=== PATIENT | male | born 1955 | race Caucasian/White ===

== ENCOUNTER → 2018-03-12 | Outpatient (CLI) | payer OTHER ==
[~2018-03-12] MED LIST: AMLO5 PO; AMOCLA875 PO; Ativan1 MG PO; CHLO10 PO; CHLO25 PO; CLON.1 PO; DILT180 PO; HYDACE5 PO; HYDACE5325 PO; HYDCHL12.5 PO; Hydrochlorothia25 MG PO; IBUP600 PO; LISI20 PO; LISI5 PO; LORA.5 PO; MAGOXI400 PO; METO25 PO; METO50 PO; METO50ER PO; Norco 5-325 Ta1 EACH PO; ONDA4ODT MM; POTPHO PO; ROXICODONE5 MG PO; RXHYD5325 PO; RXONDA4ODT MM; THERA TABLET400 MCG PO; THIA100 PO
[2018-03-12 15:30] LABS: Source, Urine Voided
[2018-03-12 19:19] LABS: Appearance, Urine Clear (Clear); Blood, Urine 4+ (Neg); Color, Urine Yellow (P-Yellow); Glucose Qualitative, Urine Neg (Neg); Ketones, Urine Neg (Neg); Leukocyte Esterase, Urine 3+ (Neg); Nitrite, Urine Neg (Neg); Protein, Urine 3+ (Neg); Urobilinogen, Urine NORM (Normal)
[2018-03-12 20:05] LABS: Bilirubin, Urine 1+ (Neg)
[2018-03-12 20:07] LABS: Bacteria Rare /hpf; Squamous Epithelial Cells Rare /hpf (Few)
== END ==
LOC: LAB SHORT 14:30 → LAB UCHC 14:30
PROVIDERS: Internal Medicine
DX: N18.3 Chronic kidney disease, stage 3 (moderate) (principal)
CPT/HCPCS: 81001

== ENCOUNTER 2018-07-05 04:41 | Observation (INO) | payer OTHER ==
[~2018-07-05] VITALS: Ht 175.3 cm; Wt 78.2 kg
[~2018-07-05 04:41] MED LIST changes: +DILTIAZEM PO; -LISI5 PO; +Zestril30 MG PO
[2018-07-05] MEDS ORDERED: DIURETIC (04:48)
[2018-07-05 05:17] LABS: BASOPHILS PERCENT AUTO 1 % (0-2); EOSINOPHILS ABSOLUTE AUTO 0.24 K/mm3 (0.00-0.68); EOSINOPHILS PERCENT AUTO 2 % (0-6); Hematocrit 47.5 % (37.0-53.0); Hemoglobin 16.1 g/dL (13.5-17.5); IMMATURE GRAN ABSOLUTE AUTO 0.32 K/mm3 (0.00-0.10); IMMATURE GRAN PERCENT AUTO 2 % (0-1); LYMPHOCYTES ABSOLUTE AUTO 2.55 K/mm3 (0.84-5.20); LYMPHOCYTES PERCENT AUTO 19 % (21-46); MONOCYTES ABSOLUTE AUTO 0.99 K/mm3 (0.16-1.47); MONOCYTES PERCENT AUTO 7 % (4-13); Mean Corpuscular HGB 32.5 pg (26.0-34.0); Mean Corpuscular HGB Conc 33.9 g/dL (31.5-36.5); Mean Corpuscular Volume 96 fL (80-100); Mean Platelet Volume 9.3 fL (9.1-12.4); NEUTROPHILS PERCENT AUTO 68 % (41-73); Platelet Count 369 K/mm3 (150-400); RDW Coefficient Variation 12.5 % (11.7-14.2); RDW Standard Deviation 43.8 fL (35.1-46.3); Red Blood Cell Count 4.96 M/mm3 (4.30-5.90)
[2018-07-05 05:31] LABS: Albumin, Blood 3.8 g/dL (3.4-5.0); Albumin/Globulin Ratio 0.7 (0.8-1.8); Bilirubin, Total 0.2 mg/dL (0.1-1.0); Bun/Creatinine Ratio 18.1 (12.0-20.0); Calcium, Blood 9.8 mg/dL (8.5-10.1); Creatinine, Blood 1.88 mg/dL (0.60-1.20); Globulin, Blood 5.7 g/dL (2.2-4.0); Potassium, Blood 4.3 mmol/L (3.5-5.5); Total Protein, Blood 9.5 g/dL (6.4-8.2)
[2018-07-05] MEDS ORDERED: SPIR25 PO (09:36)
[2018-07-05 13:54] LABS: Bilirubin, Urine Neg (Neg); Blood, Urine Neg (Neg); Glucose Qualitative, Urine 2+ (Neg); Ketones, Urine Neg (Neg); Leukocyte Esterase, Urine Neg (Neg); Nitrite, Urine Neg (Neg); Protein, Urine 3+ (Neg); Source, Urine Clean Catch; Urobilinogen, Urine NORM (Normal)
[2018-07-05 14:30] LABS: Specific Gravity, Urine 1.015 (1.003-1.022)
[2018-07-05 14:33] LABS: U Amphetamine Screen Not Detected; U Barbituate Screen Not Detected; U Benzodiazapine Screen Not Detected; U Buprenorphine Screen Not Detected; U Cannabinoids Screen Not Detected; U Cocaine Screen Not Detected; U Methadone Screen Not Detected; U Methamphetamine Screen Not Detected; U Opiates Screen Not Detected; U Oxycodone Screen Not Detected; U Phencyclidine Screen Not Detected; U Propoxyphene Screen Not Detected
[2018-07-05 14:46] LABS: Appearance, Urine Clear (Clear); Color, Urine Yellow (P-Yellow)
[2018-07-05 14:48] LABS: Bacteria Not Seen /hpf; Red Blood Cells, Urine Not Seen /hpf (0-2); Squamous Epithelial Cells Not Seen /hpf (Few); White Blood Cells, Urine Not Seen /hpf (0-5)
[2018-07-06 04:00] LABS: BASOPHILS ABSOLUTE AUTO 0.07 K/mm3 (0.00-0.23); BASOPHILS PERCENT AUTO 1 % (0-2); EOSINOPHILS ABSOLUTE AUTO 0.27 K/mm3 (0.00-0.68); EOSINOPHILS PERCENT AUTO 3 % (0-6); IMMATURE GRAN ABSOLUTE AUTO 0.06 K/mm3 (0.00-0.10); IMMATURE GRAN PERCENT AUTO 1 % (0-1); LYMPHOCYTES ABSOLUTE AUTO 2.45 K/mm3 (0.84-5.20); LYMPHOCYTES PERCENT AUTO 25 % (21-46); MONOCYTES ABSOLUTE AUTO 1.16 K/mm3 (0.16-1.47); MONOCYTES PERCENT AUTO 12 % (4-13); Mean Corpuscular HGB 32.9 pg (26.0-34.0); Mean Corpuscular HGB Conc 33.3 g/dL (31.5-36.5); NEUTROPHILS ABSOLUTE AUTO 5.86 K/mm3 (1.96-9.15); NEUTROPHILS PERCENT AUTO 59 % (41-73); Platelet Count 294 K/mm3 (150-400); RDW Coefficient Variation 12.9 % (11.7-14.2); RDW Standard Deviation 46.7 fL (35.1-46.3); Red Blood Cell Count 3.95 M/mm3 (4.30-5.90); White Blood Cell Count 9.87 K/mm3 (4.00-11.30)
[2018-07-06 04:02] LABS: Mean Corpuscular Volume 99 fL (80-100)
[2018-07-06 04:17] LABS: Bun/Creatinine Ratio 14.5 (12.0-20.0); Calcium, Blood 8.1 mg/dL (8.5-10.1); Creatinine, Blood 1.65 mg/dL (0.60-1.20); Magnesium, Blood 1.8 mg/dL (1.6-2.4); Potassium, Blood 4.5 mmol/L (3.5-5.5)
[2018-07-07] MEDS ORDERED: ASPI325EC PO (11:15)
[2018-07-07] MEDS ORDERED: CREON DR 12,001 EACH PO (11:16)
== END 2018-07-07 12:53 | disposition home or self-care (01) ==
LOC: ER 04:41 → PCU 04:42 → MEDS 08:53 → PCU 09:03 → MEDS 07-06 14:59
PROVIDERS: Emergency Medicine; Internal Medicine
DX: K85.20 Alcohol induced acute pancreatitis without necrosis or infection (principal); I16.0 Hypertensive urgency; I12.9 Hypertensive chronic kidney disease with stage 1 through stage 4 chronic kidney disease, or unspecified chronic kidney disease; N18.9 Chronic kidney disease, unspecified; N17.9 Acute kidney failure, unspecified; F17.210 Nicotine dependence, cigarettes, uncomplicated; D72.829 Elevated white blood cell count, unspecified; F19.10 Other psychoactive substance abuse, uncomplicated; F10.239 Alcohol dependence with withdrawal, unspecified; I63.233 Cerebral infarction due to unspecified occlusion or stenosis of bilateral carotid arteries; R11.2 Nausea with vomiting, unspecified; Z79.899 Other long term (current) drug therapy; Z79.01 Long term (current) use of anticoagulants; Y90.5 Blood alcohol level of 100-119 mg/100 ml
CPT/HCPCS: 36415; 70551; 80048; 80053; 81001; 83690; 83735; 85025; 93005; 93010; 93880; 96361; 96365; 96366; 96372; 96375; 96376; 99285-25; G0378; G0480; J0360; J1170; J1650; J2060; J2405; J3010; J3411; J3475; J7030; J7042

== ENCOUNTER 2018-11-25 17:53 | Emergency (ER) | payer OTHER ==
[~2018-11-25] VITALS: Ht 175.3 cm; Wt 77.1 kg
[~2018-11-25 17:53] MED LIST changes: +ASPI325EC PO; +CREON DR 12,001 EACH PO; +DIURETIC; +SPIR25 PO
[2018-11-25] MEDS ORDERED: DILT180 PO (18:07)
[2018-11-25] MEDS ORDERED: SODBIC650 PO (18:07)
[2018-11-25] MEDS ORDERED: LISI20 PO (18:07)
[2018-11-25 18:55] LABS: BASOPHILS ABSOLUTE AUTO 0.11 K/mm3 (0.00-0.23); BASOPHILS PERCENT AUTO 1 % (0-2); EOSINOPHILS ABSOLUTE AUTO 0.44 K/mm3 (0.00-0.68); EOSINOPHILS PERCENT AUTO 5 % (0-6); Hematocrit 37.3 % (37.0-53.0); Hemoglobin 12.2 g/dL (13.5-17.5); IMMATURE GRAN ABSOLUTE AUTO 0.32 K/mm3 (0.00-0.10); IMMATURE GRAN PERCENT AUTO 3 % (0-1); LYMPHOCYTES ABSOLUTE AUTO 3.07 K/mm3 (0.84-5.20); LYMPHOCYTES PERCENT AUTO 32 % (21-46); MONOCYTES ABSOLUTE AUTO 0.94 K/mm3 (0.16-1.47); MONOCYTES PERCENT AUTO 10 % (4-13); Mean Corpuscular HGB 32.9 pg (26.0-34.0); Mean Corpuscular HGB Conc 32.7 g/dL (31.5-36.5); Mean Corpuscular Volume 101 fL (80-100); Mean Platelet Volume 8.4 fL (9.1-12.4); NEUTROPHILS ABSOLUTE AUTO 4.67 K/mm3 (1.96-9.15); NEUTROPHILS PERCENT AUTO 49 % (41-73); Platelet Count 489 K/mm3 (150-400); RDW Standard Deviation 50.4 fL (35.1-46.3); Red Blood Cell Count 3.71 M/mm3 (4.30-5.90); White Blood Cell Count 9.55 K/mm3 (4.00-11.30)
[2018-11-25 19:15] LABS: Albumin, Blood 3.3 g/dL (3.4-5.0); Albumin/Globulin Ratio 0.7 (0.8-1.8); Bilirubin, Total 0.1 mg/dL (0.1-1.0); Bun/Creatinine Ratio 13.2 (12.0-20.0); Calcium, Blood 8.6 mg/dL (8.5-10.1); Creatinine, Blood 1.67 mg/dL (0.60-1.20); Potassium, Blood 4.6 mmol/L (3.5-5.5); Total Protein, Blood 8.3 g/dL (6.4-8.2)
== END 2018-11-25 20:47 | disposition home or self-care (01) ==
LOC: ER 17:53
PROVIDERS: Emergency Medicine
DX: M25.552 Pain in left hip (principal); R53.1 Weakness; F10.10 Alcohol abuse, uncomplicated; I12.9 Hypertensive chronic kidney disease with stage 1 through stage 4 chronic kidney disease, or unspecified chronic kidney disease; N18.9 Chronic kidney disease, unspecified; Z79.899 Other long term (current) drug therapy; Z79.82 Long term (current) use of aspirin; Z86.73 Personal history of transient ischemic attack (TIA), and cerebral infarction without residual deficits; Z87.891 Personal history of nicotine dependence; W18.30XA Fall on same level, unspecified, initial encounter
CPT/HCPCS: 36415; 72170; 80053; 85025; 93005; 93010; 99284-25

== ENCOUNTER 2019-08-19 19:12 | Emergency (ER) | payer OTHER ==
[~2019-08-19] VITALS: Ht 175.3 cm; Wt 81.7 kg
[~2019-08-19 19:12] MED LIST changes: +SODBIC650 PO
[2019-08-19 21:20] LABS: Calcium, Ionized (POC) 1.06 mmol/L (1.10-1.46); Chloride (POC) 106 mmol/L (98-108); Creatinine (POC) 2.2 mg/dL (0.8-1.3); Glucose (ISTAT POC) 162 mg/dL (70-99); Potassium (POC) 4.1 mmol/L (3.5-5.5); Sodium (POC) 140 mmol/L (135-148); Total CO2 (POC) 21 mmol/L (21-32)
[2019-08-19] MEDS ORDERED: CHLO25 PO (22:16)
[2019-08-19] MEDS ORDERED: ONDA4ODT MM (22:16)
== END 2019-08-19 22:20 ==
LOC: ER 19:12
PROVIDERS: Emergency Medicine
DX: S00.12XA Contusion of left eyelid and periocular area, initial encounter (principal); F10.239 Alcohol dependence with withdrawal, unspecified; K85.90 Acute pancreatitis without necrosis or infection, unspecified; I10 Essential (primary) hypertension; Z79.899 Other long term (current) drug therapy; Z79.82 Long term (current) use of aspirin; W50.0XXA Accidental hit or strike by another person, initial encounter
CPT/HCPCS: 70200; 80047; 83690; 85014; 96374; 99284-25; J2060

== ENCOUNTER 2019-09-24 00:35 | Inpatient (IN) | payer OTHER ==
[~2019-09-24] VITALS: Ht 177.8 cm; Wt 75.0 kg
[2019-09-24 01:31] LABS: BASOPHILS ABSOLUTE AUTO 0.09 K/mm3 (0.00-0.23); BASOPHILS PERCENT AUTO 1 % (0-2); EOSINOPHILS ABSOLUTE AUTO 0.06 K/mm3 (0.00-0.68); EOSINOPHILS PERCENT AUTO 0 % (0-6); Hematocrit 42.8 % (37.0-53.0); Hemoglobin 14.4 g/dL (13.5-17.5); IMMATURE GRAN ABSOLUTE AUTO 0.12 K/mm3 (0.00-0.10); IMMATURE GRAN PERCENT AUTO 1 % (0-1); LYMPHOCYTES ABSOLUTE AUTO 1.33 K/mm3 (0.84-5.20); LYMPHOCYTES PERCENT AUTO 9 % (21-46); MONOCYTES ABSOLUTE AUTO 1.13 K/mm3 (0.16-1.47); MONOCYTES PERCENT AUTO 8 % (4-13); Mean Corpuscular HGB Conc 33.6 g/dL (31.5-36.5); Mean Corpuscular Volume 101 fL (80-100); Mean Platelet Volume 9.3 fL (9.1-12.4); NEUTROPHILS ABSOLUTE AUTO 12.14 K/mm3 (1.96-9.15); NEUTROPHILS PERCENT AUTO 82 % (41-73); Platelet Count 403 K/mm3 (150-400); RDW Coefficient Variation 15.3 % (11.7-14.2); RDW Standard Deviation 57.1 fL (35.1-46.3); Red Blood Cell Count 4.24 M/mm3 (4.30-5.90); White Blood Cell Count 14.87 K/mm3 (4.00-11.30)
[2019-09-24 01:46] LABS: Alanine Aminotransfer (ALT/SGP 57 U/L (12-78); Albumin, Blood 4.7 g/dL (3.4-5.0); Alk Phos 106 U/L (50-136); Anion Gap 18 mmol/L (6-16); Aspartate Aminotrans (AST/SGOT 45 U/L (12-37); Bilirubin, Total 0.3 mg/dL (0.1-1.0); Blood Urea Nitrogen 35 mg/dL (8-24); Bun/Creatinine Ratio 16.1 (12.0-20.0); CO2, Blood 17 mmol/L (21-32); Calcium, Blood 10.2 mg/dL (8.5-10.1); Chloride, Blood 107 mmol/L (98-108); Creatinine, Blood 2.17 mg/dL (0.60-1.20); Ethanol (Alcohol), Blood, Med 26 mg/dL; Globulin, Blood 4.7 g/dL (2.2-4.0); Glomerular Filtration Rate 33 (60-); Glucose, Blood 74 mg/dL (70-99); Potassium, Blood 4.5 mmol/L (3.5-5.5); Sodium, Blood 142 mmol/L (136-145); Total Protein, Blood 9.4 g/dL (6.4-8.2); Troponin I <0.015 ng/mL (0.000-0.040)
[2019-09-24 03:14] LABS: Source, Urine Clean Catch
[2019-09-24 03:16] LABS: Appearance, Urine Clear (Clear); Bilirubin, Urine Neg (Neg); Blood, Urine 1+ (Neg); Color, Urine Yellow (P-Yellow); Glucose Qualitative, Urine Neg (Neg); Ketones, Urine 2+ (Neg); Leukocyte Esterase, Urine Neg (Neg); Nitrite, Urine Neg (Neg); Protein, Urine 2+ (Neg); Specific Gravity, Urine 1.015 (1.003-1.022); Urobilinogen, Urine NORM (Normal)
[2019-09-24 03:32] LABS: Bacteria Few /hpf; Red Blood Cells, Urine 0-2 /hpf (0-2); Squamous Epithelial Cells Not Seen /hpf (Few); White Blood Cells, Urine 0-2 /hpf (0-5)
[2019-09-24 05:38] LABS: Hematocrit 38.7 % (37.0-53.0); Hemoglobin 12.7 g/dL (13.5-17.5); Mean Corpuscular HGB 33.5 pg (26.0-34.0); Mean Corpuscular HGB Conc 32.8 g/dL (31.5-36.5); Mean Corpuscular Volume 102 fL (80-100); Mean Platelet Volume 9.3 fL (9.1-12.4); Platelet Count 358 K/mm3 (150-400); RDW Coefficient Variation 15.5 % (11.7-14.2); RDW Standard Deviation 59.1 fL (35.1-46.3); Red Blood Cell Count 3.79 M/mm3 (4.30-5.90); White Blood Cell Count 15.07 K/mm3 (4.00-11.30)
[2019-09-24 06:00] LABS: Albumin, Blood 3.9 g/dL (3.4-5.0); Bilirubin, Total 0.5 mg/dL (0.1-1.0); Bun/Creatinine Ratio 15.8 (12.0-20.0); Calcium, Blood 9.3 mg/dL (8.5-10.1); Creatinine, Blood 2.03 mg/dL (0.60-1.20); Globulin, Blood 4.1 g/dL (2.2-4.0); Potassium, Blood 4.5 mmol/L (3.5-5.5)
[2019-09-24 06:05] LABS: CHOL/HDL RATIO 2.5; Cholesterol 135 mg/dL (50-200); HDL Cholesterol 53 mg/dL (>39); LDL/HDL RATIO 1.2; Low Density Lipoprotein Chol 64 mg/dL (0-110); Triglycerides 92 mg/dL (30-160); Very Low Density Lipoprot Chol 18 mg/dL (6-32)
--- NOTE | 2019-09-24 18:14 | NUR ---
PT UP AND AMBULATING IN [place] TODAY, DIET ADVANCED TO CLEARS AND HE APPEARS TO BE TOLERATING WELL. MEDICATED FOR PAIN WITH IV FENTANYL X2 TODAY. NO S/S OF ETOH WITHDRAWL. NO ACUTE CHANGES NOTED THIS SHIFT. WILL CONTINUE TO MONITOR AND REPORT TO ONCOMING RN
[2019-09-25 05:34] LABS: BASOPHILS ABSOLUTE AUTO 0.06 K/mm3 (0.00-0.23); BASOPHILS PERCENT AUTO 1 % (0-2); EOSINOPHILS ABSOLUTE AUTO 0.27 K/mm3 (0.00-0.68); EOSINOPHILS PERCENT AUTO 3 % (0-6); Hematocrit 31.1 % (37.0-53.0); Hemoglobin 10.3 g/dL (13.5-17.5); IMMATURE GRAN ABSOLUTE AUTO 0.03 K/mm3 (0.00-0.10); IMMATURE GRAN PERCENT AUTO 0 % (0-1); LYMPHOCYTES ABSOLUTE AUTO 1.53 K/mm3 (0.84-5.20); LYMPHOCYTES PERCENT AUTO 18 % (21-46); MONOCYTES ABSOLUTE AUTO 1.06 K/mm3 (0.16-1.47); MONOCYTES PERCENT AUTO 13 % (4-13); Mean Corpuscular HGB 33.8 pg (26.0-34.0); Mean Corpuscular HGB Conc 33.1 g/dL (31.5-36.5); Mean Corpuscular Volume 102 fL (80-100); Mean Platelet Volume 9.1 fL (9.1-12.4); NEUTROPHILS ABSOLUTE AUTO 5.49 K/mm3 (1.96-9.15); NEUTROPHILS PERCENT AUTO 65 % (41-73); Platelet Count 286 K/mm3 (150-400); RDW Coefficient Variation 15.6 % (11.7-14.2); RDW Standard Deviation 58.3 fL (35.1-46.3); Red Blood Cell Count 3.05 M/mm3 (4.30-5.90); White Blood Cell Count 8.44 K/mm3 (4.00-11.30)
--- NOTE | 2019-09-25 05:48 | NUR ---
SHIFT SUMMARY NO ACUTE EVENTS OVERNIGHT. VSS. CIWA 2-3. AAOX4. INDEPENDENT IN ROOM. PATIENT SLEPT MAJORITY OF FISH STRAIGHTENER. WILL CONTINUE TO MONITOR AND REPORT TO ONCOMING STAFF
[2019-09-25 06:02] LABS: Albumin/Globulin Ratio 0.9 (0.8-1.8); Bilirubin, Total 0.3 mg/dL (0.1-1.0); Calcium, Blood 8.6 mg/dL (8.5-10.1); Creatinine, Blood 1.93 mg/dL (0.60-1.20); Globulin, Blood 3.2 g/dL (2.2-4.0); Potassium, Blood 4.2 mmol/L (3.5-5.5); Total Protein, Blood 6.2 g/dL (6.4-8.2)
--- NOTE | 2019-09-25 08:00 | NUR ---
PT PLEASANT COOP A/O TALKATAIVE. AMBULATING IN HALLS AND ROOM INDEPENDANTLY. CWA = 0. NO TREMORS, SHAKES, HALUCINATIONS, IS ABLE TO ADD NUMBERS. COHEARANT. H/R REG, NO MURMER NOTED. LUNGS CLEAR, RESP EASY, UNLABORED. ON R.A. BT X4 LAST BM 2-3 DAYS PER PT. BUT STATES NOT EATING/ VOIDS INDEPENDANTLY TO BATHROOM. BED IN LOW POSITION, CALL LITE IN REACH, CALLS APPROP
[2019-09-25] MEDS ORDERED: HYDR1TAB94 PO (11:32)
[2019-09-25] MEDS ORDERED: ONDA4ODT PO (11:33)
--- NOTE | 2019-09-25 13:31 | NUR ---
IV REMOVED INTACT. DISCHARGE REVIEWED WITH PT. VERBALIZED UNDERSTANDING. PT RECEIVED [employer] TV HARD COPY. STATES PUTTING IN WALLET FOR SAFE KEEPING. PT WALKED TO DOOR WITH AIDE AT 1325
--- NOTE | 2019-09-25 13:39 | NUR ---
PT STATES SOME COLDER NOW. WAS SLEEPING, BUT AWAKENS EASILY. PRESENTS SOMEWHAT MORE PALE THAN THIS AM. VSS. O2 >95% R/A. WILL CONTINUE TO FOLLOW
== END 2019-09-25 13:26 | disposition home or self-care (01) | DRG 439 ==
LOC: ER 00:35 → MEDS 00:36
PROVIDERS: Emergency Medicine; Family Medicine; ADMIT Internal Medicine
DX: K85.20 Alcohol induced acute pancreatitis without necrosis or infection (principal); F10.239 Alcohol dependence with withdrawal, unspecified; N18.3 Chronic kidney disease, stage 3 (moderate); I12.9 Hypertensive chronic kidney disease with stage 1 through stage 4 chronic kidney disease, or unspecified chronic kidney disease; K80.20 Calculus of gallbladder without cholecystitis without obstruction; N20.0 Calculus of kidney; E83.52 Hypercalcemia; B19.20 Unspecified viral hepatitis C without hepatic coma; E86.0 Dehydration; F19.10 Other psychoactive substance abuse, uncomplicated; K86.1 Other chronic pancreatitis; Z79.82 Long term (current) use of aspirin; Z79.899 Other long term (current) drug therapy; Z87.891 Personal history of nicotine dependence; Z86.73 Personal history of transient ischemic attack (TIA), and cerebral infarction without residual deficits
CPT/HCPCS: 36415; 74176; 76705; 80053; 80061; 81001; 83690; 84484; 85025; 85027; 93005; 93010; 96361; 96374; 96375; 99285-25; C9113; G0378; G0480; J1170; J1650; J2405; J2550; J3010; J3411; J3475; J7030; J7042

== ENCOUNTER 2019-11-11 10:42 | Emergency (ER) | payer OTHER ==
[~2019-11-11] VITALS: Ht 177.8 cm; Wt 77.1 kg
[~2019-11-11 10:42] MED LIST changes: +HYDR1TAB94 PO; +ONDA4ODT PO
[2019-11-11 11:19] LABS: BASOPHILS ABSOLUTE AUTO 0.04 K/mm3 (0.00-0.23); BASOPHILS PERCENT AUTO 1 % (0-2); EOSINOPHILS ABSOLUTE AUTO 0.12 K/mm3 (0.00-0.68); EOSINOPHILS PERCENT AUTO 1 % (0-6); Hematocrit 40.4 % (37.0-53.0); Hemoglobin 13.6 g/dL (13.5-17.5); IMMATURE GRAN ABSOLUTE AUTO 0.08 K/mm3 (0.00-0.10); IMMATURE GRAN PERCENT AUTO 1 % (0-1); LYMPHOCYTES ABSOLUTE AUTO 0.61 K/mm3 (0.84-5.20); LYMPHOCYTES PERCENT AUTO 7 % (21-46); MONOCYTES ABSOLUTE AUTO 0.85 K/mm3 (0.16-1.47); MONOCYTES PERCENT AUTO 10 % (4-13); Mean Corpuscular HGB 33.6 pg (26.0-34.0); Mean Corpuscular HGB Conc 33.7 g/dL (31.5-36.5); Mean Corpuscular Volume 100 fL (80-100); Mean Platelet Volume 9.9 fL (9.1-12.4); NEUTROPHILS ABSOLUTE AUTO 6.95 K/mm3 (1.96-9.15); NEUTROPHILS PERCENT AUTO 80 % (41-73); Platelet Count 221 K/mm3 (150-400); RDW Standard Deviation 47.7 fL (35.1-46.3); Red Blood Cell Count 4.05 M/mm3 (4.30-5.90); White Blood Cell Count 8.65 K/mm3 (4.00-11.30)
[2019-11-11 11:48] LABS: Albumin, Blood 3.6 g/dL (3.4-5.0); Albumin/Globulin Ratio 0.9 (0.8-1.8); Bilirubin, Total 0.3 mg/dL (0.1-1.0); Calcium, Blood 8.8 mg/dL (8.5-10.1); Creatinine, Blood 2.13 mg/dL (0.60-1.20); Potassium, Blood 5.4 mmol/L (3.5-5.5); Total Protein, Blood 7.6 g/dL (6.4-8.2)
--- NOTE | 2019-11-11 12:33 | NUR ---
Creatinine is greater than 2. Provider ordered abdominal Ct with contrast.
[2019-11-11] MEDS ORDERED: Norco 10-325 T1 EACH PO (13:18)
== END 2019-11-11 13:37 | disposition home or self-care (01) ==
LOC: ER 10:42
PROVIDERS: Emergency Medicine
DX: K86.1 Other chronic pancreatitis (principal); I10 Essential (primary) hypertension; Z86.19 Personal history of other infectious and parasitic diseases; Z79.899 Other long term (current) drug therapy; F17.200 Nicotine dependence, unspecified, uncomplicated
CPT/HCPCS: 74176; 80053; 83690; 85025; 96361; 96374; 96375; 99284-25; J2405; J3010; J7030

== ENCOUNTER 2020-09-23 21:38 | Emergency (ER) | payer OTHER ==
[~2020-09-23] VITALS: Ht 175.3 cm; Wt 68.0 kg
[~2020-09-23 21:38] MED LIST changes: +Norco 10-325 T1 EACH PO
[2020-09-23] MEDS ORDERED: Naprosyn500 MG PO (23:08)
== END 2020-09-24 01:37 | disposition home or self-care (01) ==
LOC: ER 21:38
DX: M79.645 Pain in left finger(s) (principal); I10 Essential (primary) hypertension; F17.200 Nicotine dependence, unspecified, uncomplicated; Z79.899 Other long term (current) drug therapy
CPT/HCPCS: 29125; 73110; 99283-25

== ENCOUNTER 2021-12-16 19:16 | Inpatient (IN) | payer OTHER ==
[~2021-12-16] VITALS: Ht 175.3 cm; Wt 63.7 kg
[~2021-12-16 19:16] MED LIST changes: +Naprosyn500 MG PO
[2021-12-16 19:42] LABS: BASOPHILS PERCENT AUTO 1 % (0-2); EOSINOPHILS ABSOLUTE AUTO 0.11 K/mm3 (0.00-0.68); EOSINOPHILS PERCENT AUTO 1 % (0-6); Hematocrit 34.2 % (37.0-53.0); Hemoglobin 10.6 g/dL (13.5-17.5); IMMATURE GRAN ABSOLUTE AUTO 0.08 K/mm3 (0.00-0.10); IMMATURE GRAN PERCENT AUTO 1 % (0-1); LYMPHOCYTES ABSOLUTE AUTO 0.94 K/mm3 (0.84-5.20); LYMPHOCYTES PERCENT AUTO 8 % (21-46); MONOCYTES ABSOLUTE AUTO 1.33 K/mm3 (0.16-1.47); MONOCYTES PERCENT AUTO 12 % (4-13); Mean Corpuscular HGB 27.7 pg (26.0-34.0); Mean Corpuscular Volume 90 fL (80-100); Mean Platelet Volume 9.5 fL (9.1-12.4); NEUTROPHILS ABSOLUTE AUTO 8.95 K/mm3 (1.96-9.15); NEUTROPHILS PERCENT AUTO 78 % (41-73); NRBC ABSOLUTE 0.04 K/mm3 (0.00-0.02); NRBC Auto 0.3 /100 WBC (0.0-0.2); Platelet Count 459 K/mm3 (150-400); RDW Coefficient Variation 15.7 % (11.7-14.2); RDW Standard Deviation 51.3 fL (35.1-46.3); Red Blood Cell Count 3.82 M/mm3 (4.30-5.90); White Blood Cell Count 11.51 K/mm3 (4.00-11.30)
[2021-12-16 20:01] LABS: Albumin, Blood 2.9 g/dL (3.4-5.0); Albumin/Globulin Ratio 0.6 (0.8-1.8); Bilirubin, Total 1.3 mg/dL (0.1-1.0); Bun/Creatinine Ratio 17.2 (12.0-20.0); Calcium, Blood 8.5 mg/dL (8.5-10.1); Creatinine, Blood 2.62 mg/dL (0.60-1.20); Globulin, Blood 4.5 g/dL (2.2-4.0); Potassium, Blood 3.5 mmol/L (3.5-5.5); Total Protein, Blood 7.4 g/dL (6.4-8.2)
[2021-12-16 20:18] LABS: PCO2 Arterial 27.8 mmHg (35-45); PO2 Arterial 111 mmHg (80-100); pH Blood Arterial 7.41 (7.35-7.45)
[2021-12-16 21:07] LABS: Influenza A, PCR NEGATIVE (NEGATIVE); Influenza B, PCR NEGATIVE (NEGATIVE); Resp Syncytial Virus, PCR NEGATIVE (NEGATIVE); SARS-Cov-2 (COVID-19) PCR, MMC NEGATIVE (NEGATIVE)
[2021-12-17 04:04] LABS: BASOPHILS ABSOLUTE AUTO 0.07 K/mm3 (0.00-0.23); BASOPHILS PERCENT AUTO 1 % (0-2); EOSINOPHILS ABSOLUTE AUTO 0.14 K/mm3 (0.00-0.68); EOSINOPHILS PERCENT AUTO 1 % (0-6); Hematocrit 31.3 % (37.0-53.0); Hemoglobin 9.7 g/dL (13.5-17.5); IMMATURE GRAN ABSOLUTE AUTO 0.08 K/mm3 (0.00-0.10); IMMATURE GRAN PERCENT AUTO 1 % (0-1); LYMPHOCYTES ABSOLUTE AUTO 0.92 K/mm3 (0.84-5.20); LYMPHOCYTES PERCENT AUTO 9 % (21-46); MONOCYTES ABSOLUTE AUTO 1.07 K/mm3 (0.16-1.47); MONOCYTES PERCENT AUTO 11 % (4-13); Mean Corpuscular HGB 27.6 pg (26.0-34.0); Mean Corpuscular Volume 89 fL (80-100); Mean Platelet Volume 9.5 fL (9.1-12.4); NEUTROPHILS ABSOLUTE AUTO 7.64 K/mm3 (1.96-9.15); NEUTROPHILS PERCENT AUTO 77 % (41-73); NRBC ABSOLUTE 0.03 K/mm3 (0.00-0.02); NRBC Auto 0.3 /100 WBC (0.0-0.2); Platelet Count 374 K/mm3 (150-400); RDW Coefficient Variation 15.8 % (11.7-14.2); Red Blood Cell Count 3.51 M/mm3 (4.30-5.90); White Blood Cell Count 9.92 K/mm3 (4.00-11.30)
[2021-12-17 04:32] LABS: Albumin, Blood 2.7 g/dL (3.4-5.0); Albumin/Globulin Ratio 0.8 (0.8-1.8); Bilirubin, Total 0.9 mg/dL (0.1-1.0); Bun/Creatinine Ratio 17.2 (12.0-20.0); Calcium, Blood 8.2 mg/dL (8.5-10.1); Creatinine, Blood 2.74 mg/dL (0.60-1.20); Globulin, Blood 3.4 g/dL (2.2-4.0); Potassium, Blood 3.4 mmol/L (3.5-5.5); Total Protein, Blood 6.1 g/dL (6.4-8.2)
--- NOTE | 2021-12-17 05:39 | NUR ---
SUMMARY PT IS CURRENTLY RESTING QUIETLY AND HAS BEEN ABLE TO GET SOME SLEEP. CIWA OF 6 UPON ARRIVAL TO THE UNIT, PT WAS MEDICATED PRN PER EMAR. PT IS A&O X3, BIPAP INITIATED IN ED, REMAINS IN PLACE. PT IS TOLERATING WNL. SLIGHT IMPROVEMENT IN BP, DENIES CP/PRESSURE/ NO OTHER ACUTE CHANGES NOTED, CALL LIGHT IN REACH, WCTM & REPORT TO DAY SHIFT RN.
--- NOTE | 2021-12-17 08:59 | NUR ---
CARE ASSUMPTION PATIENT IS ALERT AND ORIENTATED X4. PATIENT STATED THAT HE IS GROGGY. PERRLA. NEURO IS INTACT. PATIENT REPORTS NO NUMBNESS OR TINGLING. VSS. SPO2 >90% ON 4L NC. PATIENT LUNG SOUNDS CLEAR/DIM, AND PATIENT STATED HIS BREATHING HAS IMPROVED. RESPIRATIONS 16-20. TELE SR. PATIENT REPORTS NO CHEST PAIN/PRESSURE. STRONG RADIAL AND PEDIS PULSE BILATERALLY. SKIN HAS SCATTERED SCABS AND BRUSING THROUGHOUT. SEE SHIFT ASSESSMENT FOR FULL DETAILS. MD ZAIDI IN TO SEE PATIENT THIS MORNING AND PLAN IS TO CONTINUE TO DIURESE AND WAIT FOR ECHO. PATIENT CIWA THIS AM IS 1, AND WILL CONTINUE TO MONITOR CIWA SCORE. CALL LIGHT IS WITHIN REACH AND BED IN LOWEST POSITION. WILL CONTINUE TO MONITOR AND PROVIDE CARE.
[2021-12-17 12:48] LABS: CPK Creatine Kinase 122 U/L (39-308)
[2021-12-17 14:06] LABS: Source, Urine Clean Catch
[2021-12-17 14:10] LABS: Bilirubin, Urine Neg (Neg); Blood, Urine 1+ (Neg); Glucose Qualitative, Urine Neg (Neg); Ketones, Urine Neg (Neg); Leukocyte Esterase, Urine Neg (Neg); Nitrite, Urine Neg (Neg); Protein, Urine 3+ (Neg); Specific Gravity, Urine 1.015 (1.003-1.022); Urobilinogen, Urine NORM (Normal)
[2021-12-17 14:21] LABS: U Amphetamine Screen Not Detected; U Barbituate Screen Not Detected; U Benzodiazapine Screen Not Detected; U Cannabinoids Screen DETECTED; U Cocaine Screen Not Detected; U Methadone Screen Not Detected; U Methamphetamine Screen DETECTED; U Opiates Screen Not Detected; U Phencyclidine Screen Not Detected
[2021-12-17 14:22] LABS: U Buprenorphine Screen Not Detected; U Oxycodone Screen Not Detected; U Propoxyphene Screen Not Detected
[2021-12-17 14:24] LABS: Appearance, Urine Hazy (Clear); Color, Urine Pale Yellow (P-Yellow); White Blood Cells, Urine 0-2 /hpf (0-5)
[2021-12-17 14:25] LABS: Bacteria Few /hpf; Squamous Epithelial Cells Rare /hpf (Few)
--- NOTE | 2021-12-17 17:19 | NUR ---
SHIFT SUMMARY NO ACUTE CHANGES SINCE ARRIVAL. SEE PREVIOUS NOTE. WILL CONTINUE TO MONITOR AND PROVIDE CARE UNTIL HAND OFF WITH NEXT SHIFT.
--- NOTE | 2021-12-17 17:41 | NUR ---
SHIFT SUMMARY PATIENT NEURO REMAINS INTACT. VSS. SPO2 >90% ON 4L NC. PATIENT CIWA SCORE 0-6. PATIENT IS IMPULSIVE AT TIMES AND WILL TRY TO GET OUT OF BED TO PEE. BED ALARM IS ON AND FREQUENT REMINDERS TO PUSH CALL LIGHT BEFORE GETTING UP TO USE BEDSIDE URINAL. NO ACUTE CHANGES DURING THIS SHIFT. BED ALARM ON, CALL LIGHT WITHIN REACH, AND BED IN LOWEST POSITION. WILL CONTINUE TO MONITOR AND PROVIDE CARE UNTIL HAND OFF WITH NEXT SHIFT.
[2021-12-18 04:26] LABS: BASOPHILS ABSOLUTE AUTO 0.09 K/mm3 (0.00-0.23); BASOPHILS PERCENT AUTO 1 % (0-2); EOSINOPHILS ABSOLUTE AUTO 0.32 K/mm3 (0.00-0.68); EOSINOPHILS PERCENT AUTO 4 % (0-6); Hematocrit 31.1 % (37.0-53.0); Hemoglobin 9.5 g/dL (13.5-17.5); IMMATURE GRAN ABSOLUTE AUTO 0.05 K/mm3 (0.00-0.10); IMMATURE GRAN PERCENT AUTO 1 % (0-1); LYMPHOCYTES ABSOLUTE AUTO 1.11 K/mm3 (0.84-5.20); LYMPHOCYTES PERCENT AUTO 12 % (21-46); MONOCYTES ABSOLUTE AUTO 1.04 K/mm3 (0.16-1.47); MONOCYTES PERCENT AUTO 11 % (4-13); Mean Corpuscular HGB 27.7 pg (26.0-34.0); Mean Corpuscular HGB Conc 30.5 g/dL (31.5-36.5); Mean Corpuscular Volume 91 fL (80-100); Mean Platelet Volume 9.4 fL (9.1-12.4); NEUTROPHILS ABSOLUTE AUTO 6.53 K/mm3 (1.96-9.15); NEUTROPHILS PERCENT AUTO 72 % (41-73); NRBC ABSOLUTE 0.02 K/mm3 (0.00-0.02); NRBC Auto 0.2 /100 WBC (0.0-0.2); Platelet Count 345 K/mm3 (150-400); Red Blood Cell Count 3.43 M/mm3 (4.30-5.90); White Blood Cell Count 9.14 K/mm3 (4.00-11.30)
[2021-12-18 04:50] LABS: Albumin, Blood 2.5 g/dL (3.4-5.0); Albumin/Globulin Ratio 0.7 (0.8-1.8); Bilirubin, Total 0.7 mg/dL (0.1-1.0); Bun/Creatinine Ratio 17.6 (12.0-20.0); Creatinine, Blood 3.19 mg/dL (0.60-1.20); Globulin, Blood 3.7 g/dL (2.2-4.0); Potassium, Blood 3.4 mmol/L (3.5-5.5); Total Protein, Blood 6.2 g/dL (6.4-8.2)
--- NOTE | 2021-12-18 06:11 | NUR ---
SHIFT SUMMARY HR SR 70'S. BP STABLE. ON RA MAINTAINING SATS OVER 93%. LUNG SOUNDS CLEAR AND DIMINISHED. ON CPAP WHILE SLEEPING. TO START SHIFT PT ALERT AND ORIENTED X4. CIWA SCORES <3. BY 2100 PT IS BECOMING INCREASINGLY AGITATED, RESTLESS, AND ANXIOUS. MOANING OUT AND UNCOMFORTABLE. CIWA SCORE OF 9 AND 10 REST OF EVENING. RELIEVED PER ATIVAN AND LIBRIUM. PT ABLE TO SLEEP COMFORTABLY AFTER MEDICATION ADMINISTRATION. PT INCONTINENT OF URINE. SCATTERED SCABS AND BRUISING. STATES TO HAVE DRUNK 6-12 BEERS A DAY AT HOME IN ADDITION TO 1 PINT LIQUOR. IN BED SLEEPING WITH CALL ALARM AT SIDE. WILL CONTINUE TO MONITOR UNTIL REPORT GIVEN TO DAYSHIFT ALEXANDRU
--- NOTE | 2021-12-18 14:02 | NUR ---
UPDATE QTC PROLONGATION NOTED ON TELEMETRY. DR. ZAIDI CALLED AND NOTIFED. EKG DONE AND MAG DRAW. RESULTS CALLED TO DR. ZAIDI AND NEW ORDERS RECEIVED. WILL CONTINUE TO MONITOR
--- NOTE | 2021-12-18 17:04 | NUR ---
SHIFT SUMMARY PT ALERT AND ORIENTED TO SELF AND FOLLOWING DIRECTIONS. PT FREQUENTLY ATTEMPTS TO CLIMB OUT OF BED AND THINKS HE IS AT HOME. PT HAS SOME VISUAL AND AUDITORY HALLUCINATIONS AT TIMES. CIWA HAVE BEEN FROM 9-12. BP STABLE. HR SINUS CECILE TO NSR. O2 SATS >90% ON RA WHILE AWAKE OR 2L NC AT REST. PT DENIES ANY PAIN. PT HAS BEEN INCONTINENT OF URINE MOST OF SHIFT. ATTENDS IN PLACE. PT HAS HAD POOR APPETITE THIS SHIFT AND DENIED HIS MEALS. WILL CONTINUE TO MONITOR AND REPORT TO ONCOMING ALEXANDRU
--- NOTE | 2021-12-19 05:33 | NUR ---
SHIFT SUMMARY PT A+Ox2. HR SB/SR 50-60'S. BP STABLE. ON RA MAINTAINING SATS OVER 93%. CIWA SCORES BETWEEN 12-17 THIS EVENING. PT PLACED IN BILATERAL SOFT WRIST RESTRAINTS AND TRAE VEST. PT IS EXTREMELY AGITATED TONIGHT. WILL SCREAM OUT, CURSE, AND THROW TELE BOX/ANYTHING HE CAN GRAB. PT IS CONFUSED AND ANXIOUS. IN AND OUT OF SLEEP THROUGH THE NIGHT. INCONTINENT OF URINE. MEDICATIONS SWITCHED TO IV, PT WAS SAID TO HAVE ASPIRATED WATER DURING THE MIDDLE OF THE DAY. SLEEPING AT THIS TIME. WILL CONTINUE TO MONITOR UNTIL REPORT GIVEN TO DAYSHIFT RN
--- NOTE | 2021-12-19 07:29 | NUR ---
ASSUMPTION OF CARE Pt is resting in bed. He appears restless. He remains in restraints. Discussed the plan with the charge nurse and we are waiting on the doctor to round to discuss. He has his call light in reach and bed alarm on for pt safety.
--- NOTE | 2021-12-19 09:03 | NUR ---
UPDATE Pt is awake and agitated. He is pulling at lines and attempting to get out of bed. He is oriented to himself and is mumbling incoherantly. He was repositioned and brief changed. A condom cath was placed as he has been inc of urine even when offered the urinal. A second IV was placed. He was able to swallow pudding well and could take PO pills with pudding as well. Bed alarm is on for safety.
[2021-12-19 13:54] LABS: Source, Urine Foley catheter
[2021-12-19 13:59] LABS: Bilirubin, Urine Neg (Neg); Blood, Urine Neg (Neg); Glucose Qualitative, Urine Neg (Neg); Ketones, Urine Neg (Neg); Leukocyte Esterase, Urine Neg (Neg); Nitrite, Urine Neg (Neg); Protein, Urine 2+ (Neg); Urobilinogen, Urine NORM (Normal)
[2021-12-19 14:13] LABS: Color, Urine Pale Yellow (P-Yellow)
[2021-12-19 14:14] LABS: Appearance, Urine Clear (Clear)
[2021-12-19 14:16] LABS: Bacteria Few /hpf; Red Blood Cells, Urine 0-2 /hpf (0-2); Squamous Epithelial Cells Mod /hpf (Few); White Blood Cells, Urine 0-2 /hpf (0-5)
--- NOTE | 2021-12-19 16:09 | NUR ---
SHIFT SUMMARY Pt has been oriented only to himself. He is awake in bed and thrashing around and constantly pulling at lines and very agitated. He continues to be restrained as ordered. A condom cath was tried this morning but he managed to pull it off and throw it on the floor. Since the Dr needs strict I/O's she ordered a fiore to be placed, which was done and the UA was sent to the lab per protocol. A second IV was placed earlier today. He has been able to take bites of pudding and thick liquids via spoonful but does have a hard time managing to drink out of a straw. He has his call light in reach but yells out when he needs/wants something. His bed alarm is on for safety.
--- NOTE | 2021-12-20 05:17 | NUR ---
SHIFT SUMMARY PT A+O TO SELF ONLY. REMAINS IN SOFT WRIST RESTRAINTS AND TRAE. AGITATION DECREASED FROM PREVIOUS EVENING. RESPONDED WELL TO ZYPREXA. CIWA SCORES OVER 10. HR SR 60'S AND 70'S, PROLONGED QTC. BLOOD PRESSURE HIGH THIS EVENING. PROVIDER AWARE, OKAYED ADDITIONAL DOSAGE OF LABETALOL. SATS OVER 96% ON 2L NC. MIKE IN PLACE DRAINING BRIGHT YELLOW URINE TO GRAVITY. WILL CONTINUE TO MONITOR UNTIL REPORT GIVEN TO DAYSHIFT RN
[2021-12-20 05:34] LABS: Albumin, Blood 2.7 g/dL (3.4-5.0); Anion Gap 13 mmol/L (6-16); Blood Urea Nitrogen 55 mg/dL (8-24); Bun/Creatinine Ratio 17.9 (12.0-20.0); CO2, Blood 20 mmol/L (21-32); Calcium, Blood 8.6 mg/dL (8.5-10.1); Chloride, Blood 113 mmol/L (98-108); Creatinine, Blood 3.07 mg/dL (0.60-1.20); Glomerular Filtration Rate 21 (60-); Glucose, Blood 87 mg/dL (70-99); Phosphorus, Blood 4.7 mg/dL (2.5-4.9); Potassium, Blood 3.3 mmol/L (3.5-5.5); Sodium, Blood 146 mmol/L (136-145)
--- NOTE | 2021-12-20 12:18 | NUR ---
CIWA 9, PRN ATIVAN GIVEN. PT REPOSITIONED AND CIRCULATION CHECKED WHERE RESTRAINTS ARE PLACED AND ROM DONE. MIKE DRAINING WELL.
--- NOTE | 2021-12-20 15:27 | NUR ---
Titrated to RA, sating high 90s.
--- NOTE | 2021-12-20 15:47 | NUR ---
Shift note: Pt is only oriented to self and lethargic. CIWA reached 9-10 today, prn ativan given. Soft wrist and lino vest on for safety of patient. Pt will pull at lines when restraints are off. Robin in place and draining well with yellow urine. IV abx continued per orders. EKG done with prolonged QT and QTc, MD aware and zyprexa was d/c. Restraints monitored Q2hrs for circulation and skin breakdown. Pt has been too lethargic today to eat any food.
--- NOTE | 2021-12-20 16:50 | NUR ---
Double checking on potassium replacement. Spoke with MD in person this AM that pt is unable to take oral due to mentation and we need it to be changed to IV. I left a voicemail reminding .
--- NOTE | 2021-12-20 17:45 | NUR ---
K LEVEL WAS 2.9, LVM FOR MD TO GET ORDER FOR REPLACEMENT.
[2021-12-21 04:30] LABS: Albumin, Blood 2.8 g/dL (3.4-5.0); Anion Gap 10 mmol/L (6-16); Blood Urea Nitrogen 52 mg/dL (8-24); Bun/Creatinine Ratio 17.6 (12.0-20.0); CO2, Blood 23 mmol/L (21-32); Calcium, Blood 8.9 mg/dL (8.5-10.1); Chloride, Blood 116 mmol/L (98-108); Creatinine, Blood 2.95 mg/dL (0.60-1.20); Glomerular Filtration Rate 22 (60-); Glucose, Blood 102 mg/dL (70-99); Phosphorus, Blood 3.9 mg/dL (2.5-4.9); Potassium, Blood 3.6 mmol/L (3.5-5.5); Sodium, Blood 149 mmol/L (136-145)
--- NOTE | 2021-12-21 04:46 | NUR ---
shift summary pt did not rest well through night. alert and oriented, able to make needs known. cooperative with plan of care. sats >92% on room air. tele reads nsr - rate 71. no c/o chest pain. fiore in place, uop 500ml. no bm. q2 turns. bilat wrist restraints and lino in place - see documentation. restraints are still necessary for patient safety/treatment plan. pt restless at times. ciwas 11, 12, 12. ativan given for withdrawal symptoms - see emar. iv potassium replacement for 2.9, improved to 3.6. vss, but bp slightly elevated despite the amounts of ativan given - prn iv hydralazine ordered since patient unable to safety take po at this time d/t mentation. call light within reach, bed in lowest position. will continue to monitor.
--- NOTE | 2021-12-21 07:32 | NUR ---
NURSING PCU DAYSHIFT: Assumed care of pt at 0700. Eyes closed, moans occasionally while pulling at lines within reach. Does not follow commands, does not answer questions. Current CIWA 13. BLW and vest restraints in place. Skin is dry and intact w/scattered bruising noted to UE's, red rash covering back. Tele in place, HR 60-70's, SBP 120's is DBP >100, no noted c/o CP, no noted edema. L/S cta t/o, O2 sat mid to upper 90's on RA, no noted cough. Abd soft, BT+, FC in place draining yellow urine. PIV x2, NS TKO w/IV abx and nutrition as ordered. No s/s of acute distress at this time. Attends changed, ROM completed, restraints removed for break during personal care, repositioned to R side. Pt unable to express needs or use call system, frequent rounding required. Awaiting rounding from PMD, no s/s of acute distress, continue to monitor for any changes.
--- NOTE | 2021-12-21 08:30 | NUR ---
[place]owley of care. Agree with CN AM assessment. Will continue monitor.
--- NOTE | 2021-12-21 18:15 | NUR ---
Pt remains confused with intermittent agitation. VSS with exception to BP- PRNs administered with adequate control of BP for rest of shift. Afebrile. No c/o pain. CIWA assessed q4hrs- Ativan x2 and Librium x1 administered. Pt noted to be more appropriate post Librium administration in comparison to Ativan alone. FC maintained with AUO. Poor PO intake today despite multiple attempts to feed. Frequent rounds to ensure pt safety. Pt repositioned q2hrs and pressure points offloaded to prevent pressure ulcers. Pt in no apparent distress at this time. Will continue to monitor until transfer of care to oncoming RN.
[2021-12-22 05:01] LABS: Albumin, Blood 2.7 g/dL (3.4-5.0); Albumin/Globulin Ratio 0.6 (0.8-1.8); Bilirubin, Total 0.5 mg/dL (0.1-1.0); Bun/Creatinine Ratio 18.1 (12.0-20.0); Calcium, Blood 9.2 mg/dL (8.5-10.1); Creatinine, Blood 2.65 mg/dL (0.60-1.20); Globulin, Blood 4.6 g/dL (2.2-4.0); Potassium, Blood 3.3 mmol/L (3.5-5.5); Total Protein, Blood 7.3 g/dL (6.4-8.2)
--- NOTE | 2021-12-22 05:56 | NUR ---
SHIFT SUMMARY PT RESTED SOME THIS NIGHT. ALERT TO SELF. MOANING NONSENSIBLE WORDS. BUT WHEN SPOKEN TO, SEEMS TO BE MORE ALERT. SATS >95% ON ROOM AIR. TELE READS NSR WITH SOME TWAVE INVERSION - MD AWARE AND NOTED. NO C/O CHEST PAIN. MIKE IN PLACE, DRAINING TO GRAVITY, JODEE CARE PERFORMED. NO BM. TAKING PO LIBRUIM. ATIVAN X1 - SEE EMAR. BED BATH GIVEN. REMOVED TRAE, BUT BSWR REMAIN IN PLACE. NO SIGNS OF PAIN. VSS - BP IMPROVED OVERNIGHT. CALL LIGHT WITHIN REACH, BED IN LOWEST POSITION. WILL CONTINUE TO MONITOR.
--- NOTE | 2021-12-22 15:31 | NUR ---
MD NOTIFY CONCERNING PATIENT REPEAT POTASSIUM OF 3.2.CURRENTLY RECEIVED 20 MEQ IN A.M. AWAITING MD CALL BACK.
--- NOTE | 2021-12-22 17:51 | NUR ---
PATIENT REMAINS CONFUSED AND LETHARGIC BUT FOLLOWS COMMANDS. V/S STABLE, AFEBRILE NO COMPLAINTS OF PAIN. MIKE CATHETER MANTAINED AND CARE PROVIDED. ADQUATED URINE OUTPUT. NO BOWEL MOVEMENT TODAY. POOR PO INTAKE DUE TO LETHARGY. CIWA ASSESSED Q 4 HOURS. NO PRN NEEDED. FREQUENT ROUNDS TO ENSURE PT SAFETY. PT REPOSITIONED Q2HRS AND PRESSURE POINTS OFFLOADED TO PREVENT PRESSURE ULCERS. PT IN NO APPARENT DISTRESS AT THIS TIME. WILL CONTINUE TO MONITOR UNTIL TRANSFER OF CARE TO ONCOMING RN.
[2021-12-22 22:16] LABS: Potassium, Blood 4.1 mmol/L (3.5-5.5)
[2021-12-23 04:56] LABS: BASOPHILS PERCENT AUTO 1 % (0-2); EOSINOPHILS ABSOLUTE AUTO 0.49 K/mm3 (0.00-0.68); EOSINOPHILS PERCENT AUTO 5 % (0-6); Hematocrit 35.9 % (37.0-53.0); IMMATURE GRAN ABSOLUTE AUTO 0.05 K/mm3 (0.00-0.10); IMMATURE GRAN PERCENT AUTO 1 % (0-1); LYMPHOCYTES ABSOLUTE AUTO 1.39 K/mm3 (0.84-5.20); LYMPHOCYTES PERCENT AUTO 14 % (21-46); MONOCYTES ABSOLUTE AUTO 1.24 K/mm3 (0.16-1.47); MONOCYTES PERCENT AUTO 12 % (4-13); Mean Corpuscular HGB 27.1 pg (26.0-34.0); Mean Corpuscular HGB Conc 30.6 g/dL (31.5-36.5); Mean Corpuscular Volume 88 fL (80-100); Mean Platelet Volume 9.5 fL (9.1-12.4); NEUTROPHILS ABSOLUTE AUTO 6.96 K/mm3 (1.96-9.15); NEUTROPHILS PERCENT AUTO 68 % (41-73); Platelet Count 361 K/mm3 (150-400); RDW Coefficient Variation 15.8 % (11.7-14.2); RDW Standard Deviation 51.8 fL (35.1-46.3); Red Blood Cell Count 4.06 M/mm3 (4.30-5.90); White Blood Cell Count 10.23 K/mm3 (4.00-11.30)
[2021-12-23 04:59] LABS: Albumin, Blood 2.4 g/dL (3.4-5.0); Anion Gap 8 mmol/L (6-16); Blood Urea Nitrogen 44 mg/dL (8-24); Bun/Creatinine Ratio 17.7 (12.0-20.0); CO2, Blood 24 mmol/L (21-32); Calcium, Blood 8.9 mg/dL (8.5-10.1); Chloride, Blood 114 mmol/L (98-108); Creatinine, Blood 2.49 mg/dL (0.60-1.20); Glomerular Filtration Rate 26 (60-); Glucose, Blood 120 mg/dL (70-99); Potassium, Blood 3.5 mmol/L (3.5-5.5); Sodium, Blood 146 mmol/L (136-145)
--- NOTE | 2021-12-23 05:01 | NUR ---
SHIFT SUMMARY PT ALERT AND ORIENTED X2. MUMBLES AT TIMES BUT SPEECH OTHERWISE CLEAR. HR SR 60'S AND 70'S. BP ELEVATED. AFEBRILE. ON RA SATS OVER 95%. LUNG SOUNDS CLEAR. IN BILATERAL WRIST RESTRAINTS. Q2 TURNS AND MIKE IN PLACE DRAINING CLEAR YELLOW URINE TO GRAVITY. UNAWARE HE HAS BEEN IN THE HOSPITAL FOR A WEEK. D5W INFUSING AT 75 ML/HR IN [place] PG. PG DRAWS BLOOD. IN BED SLEEPING WITH CALL ALARM AT SIDE. WILL CONTINUE TO MONITOR UNTIL REPORT GIVEN TO DAYSHIFT RN
--- NOTE | 2021-12-23 07:44 | NUR ---
CARE ASSUMPTION PT A&O TO SELF & LOCATION. SPEECH GARBLED & SLOW TO RESPOND. PT REPORTS DATE "THE January,." PT REORIENTED TO DATE/TIME. BP ELEVATED, OTHERWISE VSS. SPO2 > 92% ON RA. MONITOR SHOWING SR, HR 60's. PT DENIES N/V, HEADACHE, PAIN/DISCOMFORT, N&T. BILAT ARMS TREMULOUS WHEN EXTENDED. PT FALLS BACK TO SLEEP QUICKLY WHEN STAFF INTERACTING W/ PT, PT REQUIRING VERBAL STIMULI W/ TOUCH TO REAWAKEN FOR CARE. BILAT SWR IN PLACE. Satellier PATENT & DRAINING. D5 GTT INFUSING PER ORDERS.
--- NOTE | 2021-12-23 18:02 | NUR ---
SHIFT SUMMARY PT A&O TO SELF, LOCATION, & NOW STATING DATE: NOVEMBER 2021. PT VSS. SPO2 > 92% ON RA. MONITOR SHOWING SR W/ PROLONGED QT, HR 60's-70's. EKG DONE TODAY PER MD ORDER, EKG IN CHART. PT CIWA's 7-10 THIS SHIFT. PRN LIBRIUM GIVEN X1 THIS SHIFT, SEE EMAR. D5 GTT DC'd PER MD ORDER TODAY. PT TOLERATING SMALL AMOUNTS OF PO INTAKE. BILAT SWR IN PLACE. MIKE CATH PATENT & DRAINING. BED ALARM ON.
--- NOTE | 2021-12-24 06:03 | NUR ---
SHIFT SUMMARY PT ALERT AND ORIENTED X3. LETHARGIC MOST OF NIGHT. HR SR 60'S AND 70'S. BP STABLE. AFEBRILE. REMAINS IN SOFT BILATERAL WRIST RESTRAINTS. MENTATION IMPROVING FROM PREVIOUS EVENING. MIKE IN PLACE DRAINING YELLOW URINE TO GRAVITY. POWERGLIDE DOES NOT DRAW. TOLERATING PO INTAKE. IN BED RESTING WITH CALL ALARM AT SIDE. WILL CONTINUE TO MONITOR UNTIL REPORT GIVEN TO DAYSHIFT RN
[2021-12-24 06:45] LABS: Albumin, Blood 2.4 g/dL (3.4-5.0); Anion Gap 9 mmol/L (6-16); Blood Urea Nitrogen 48 mg/dL (8-24); Bun/Creatinine Ratio 18.5 (12.0-20.0); CO2, Blood 23 mmol/L (21-32); Calcium, Blood 8.8 mg/dL (8.5-10.1); Chloride, Blood 114 mmol/L (98-108); Glomerular Filtration Rate 25 (60-); Glucose, Blood 177 mg/dL (70-99); Phosphorus, Blood 3.8 mg/dL (2.5-4.9); Potassium, Blood 3.4 mmol/L (3.5-5.5); Sodium, Blood 146 mmol/L (136-145)
--- NOTE | 2021-12-24 07:32 | NUR ---
CARE ASSUMPTION PT A&O TO SELF, MONTH & YR. PT DENIES KNOWING WHERE HE IS TODAY, STATING "FUCK IF I KNOW, ARE YOU GOING TO TELL ME?" PT SPEECH CONTINUES TO BE GARBLED, BUT PT QUICKER TO RESPOND. PT DRIFTING IN AND OUT OF SLEEP. PT STATING "I NEED A PAIN KILLER & A SLEEP AID." PT REPORTS PAIN LOCATION: "MY PENIS. IT FEELS LIKE I'VE BEEN MASTERBATING TOO LONG." PT DENIES MASTERBATING D/T "TOO MANY THINGS IN THE WAY." SITE APPEARS WNL. MIKE CATH CLEAN, PATENT & DRAINING. PT FALLING ASLEEP MOMENTS AFTER MAKING REQUEST FOR MEDICATION. VSS. SPO2 > 92% ON RA. MONITOR SHOWING SR, HR 70's. BED ALARM ON.
[2021-12-25 05:22] LABS: Albumin, Blood 2.5 g/dL (3.4-5.0); Anion Gap 8 mmol/L (6-16); Blood Urea Nitrogen 57 mg/dL (8-24); Bun/Creatinine Ratio 20.3 (12.0-20.0); CO2, Blood 24 mmol/L (21-32); Calcium, Blood 9.1 mg/dL (8.5-10.1); Chloride, Blood 112 mmol/L (98-108); Creatinine, Blood 2.81 mg/dL (0.60-1.20); Glomerular Filtration Rate 23 (60-); Glucose, Blood 109 mg/dL (70-99); Phosphorus, Blood 4.2 mg/dL (2.5-4.9); Potassium, Blood 3.7 mmol/L (3.5-5.5); Sodium, Blood 144 mmol/L (136-145)
--- NOTE | 2021-12-25 05:30 | NUR ---
DIRECTOR OF RECRUITMENT SUMMARY ADMITTED FOR NEW DIAGNOSIS OF CHF. PT IS FULL CODE. HE HAS NO NOTED SWELLING DURING THIS SHIFT. PT DOES HAVE A WET COUGH. HE ALTERNATES BETWEEN SLEEPING AND RESTLESS, TRYING TO GET OUT OF BED FOR WATER. HE IS OVERALL WEAK AND NEEDS ASSISTANCE WITH EATING AND DRINKING. PT IS INCONTINENT. HE IS ALERT AND ORIENTED TO SELF ONLY DURING THIS SHIFT.
--- NOTE | 2021-12-25 15:08 | NUR ---
PT UP TO CHAIR WITH 2 PERSON MAX LIFT USING GAIT BELT AND SWING INTO CHAIR. UNABLE TO HOLD HIMSELF UP WHILE SITTING AT THE EDGE OF THE BED. UNABLE TO STRAIGHTEN LEGS TO BEAR WEITHT, UNCOORDINATED AND LIMITED STRENGTH. ORDER FOR PT/OT
--- NOTE | 2021-12-25 16:17 | NUR ---
Spoke with ALEXANDRU Garzon and discussed case. Pt's family would benefit from discussion regarding code status and goals of care. Pt is 2 person max assist with transfers. Reviewed chart and visited with Pt. Pt is A&OX2. Pt fidgets with his cell phone and appears to be struggling with how to use it. Pt denies pain at this time. Ended visit to allow Pt to rest. Spoke with Dr Malhotra and discussed case. Dr Roscoe aceves reports family would benefit from discussion regarding code status, goals of care including considering hospice, and planning for Pt's future care needs. Called and left message with Pt's brother Yandel with request for a return phone call. Called and spoke with Pt's brother Joby. Provided update, reviewed current plan of care, and engaged in therapeutic discussion regarding goals of care. Gentle education on disease process. Discussed Pt's wishes regarding code status. Educated on life sustaining treatments including risk factors and implications of CPR. Discussed hospice as an option. Offered therapeutic listening and answered questions. Discussed concerns regarding Pt's alcohol abuse and potential difficulty with placement. Continued therapeutic listening. Joby reports Pt was and approximately 5-6 years ago. Pt never had children of his own. Pt's late had children but non together. Joby reports Pt has been estranged from them for about a year. Joby expresses appreciation and reports plan to call other brother Yanedl, and sister Sarah. Joby reports living in [facility], Yandel lives in [facility], and sister Sarah lives in [facility]. He states plan to call family and discuss concerns and goals of care. Joby expresses appreciation and reports no other concerns. Joby García [phone] Yandel García [phone] Sarah (sister) [phone] Palliative Care will remain available.
--- NOTE | 2021-12-25 18:15 | NUR ---
PATIENT HARD TO TRANSFER- MAX ASSIST X 2. LS CLEAR DIMINISHED, BS + BOWEL PROTOCAL ORDERED CHART STATES NO BM SINCE 12-15-21 HOWEVER PATIENT REPORTS NOT FEELING CONSITPATED AND IS NOT DISTENDED. PATIENT BECAME TEARY TONIGHT TALKING ABOUT THE 7 YEARS OF SOBRIETY HE HAS HAD, AND HOW HIS WIFES TRIGGERED HIS RELAPSE. THE NAMES OF HIS 2 SONS ARE WRITTEN ON HIS WHITE BOARD AND HIS DAUGHTERS NUMBER IS BEING SOUGHT. PATIENT IS NOT HAVING PAIN, EXCEPT HIS KNEE (L). THE PROVIDER IS PLACING AN ORDER FOR ASPERCREAM OR SIMILAR EATING MEALS WITH HELP FROM STAFF AND IS ON A [facility] SOFT DIET WITH NO STRAW DUE TO RISK OF ASPIRATION.
--- NOTE | 2021-12-26 07:15 | NUR ---
SHIFT SUMMARY PT ALERT AND ORIENTED TO PERSON AND PLACE, ATTEMPTED TO GET OUT OF BED SEVERAL TIMES THIS SHIFT, SR UP X3 AND BED ALARM ON AND BED IN LOW POSITION, LIBRIUM GIVEN X ONE THIS SHIFT FOR RESTLESSNESS/ANXIETY AND WAS EFFECTIVE, TYLENOL GIVEN X1 FOR LT. KNEE PAIN 05/08 AND WAS ALSO EFFECTIVE, TURNED AND REPOSITIONED Q2 HRS, INCONTIENT OF BOWEL AND BLADDER THIS SHIFT, RT PLACED PT ON BIPAP AND SHAKE SAWYER AT HS AND PT TOLERATED OK BUT PULLED OFF THIS AM BUT IT WAS REPLACED AND O2 SATS WAS IN THE MID 90'S. NO DISTRESS THIS SHIFT.
--- NOTE | 2021-12-26 09:05 | NUR ---
Pt resting in bed and attempting to climb out of bed. Staff in room and will provide personal care for Pt. Staff will assist Pt to chair. Spoke with Primary RN Duran and discussed case. Awaiting of family to call with decisions regarding goals of care. Palliative Care will remain available.
--- NOTE | 2021-12-26 14:17 | NUR ---
F/U visit this afternoon. Pt resting in bed and has TRAE vest on. Spoke with Primary RN Duran and discussed case. Pt exhibiting some parnoia and appears skeptical of staff. Pt remains confused. Called and spoke with Pt's brother Joby. Joby reports having a conversation with other siblings. Family feels Pt's code status should be DNR. Joby reports Pt lives home alone. Discussed the importance of considering prison goals for Pt due to his chronic multi organ failure including considering hospice. Joby expresses appreciation and reports no other concerns at this time. Spoke with Dr Jimenez and discussed case. Placed DNR order in [facility] per V/O from Dr Jimenez. Palliative Care will remain available.
--- NOTE | 2021-12-26 15:10 | NUR ---
PT UP IN THE CHAIR ALL MORNING AND THROUGH LUNCH. PLEASANT AND COOPERATIVE. WAS UP IN THE CHAIR FOR 3 HOURS TODAY RESTING QUIETLY AND PLACED BACK IN BED. BECAME INCREASINGLY AGGITATED AND AGGRESSIVE TOWARDS STAFF. THINKS WE KIDNAPPED HIM AND HE IS PARANOID OF STAFF INTENTIONS. MEDICATED WITH ATIVAN 0.5MG THAT HAS HELPED TO CALM PT. STAYED AT BEDSIDE 1:1 UNTIL PT CALMED. CALL TO DR MARTIN NO NOTIFY POSSIBLE NEED OF TRAE AND OR CHANGE IN ANXIOLYTIC. LEFT MESSAGE- WILL F/U
--- NOTE | 2021-12-26 18:48 | NUR ---
SUMMARY- PT ALERT TO SELF, PRESIDENT'S NAME, HIS PHONE # AND ADDRESS. WAS RESTLESS THIS AM BUT DIRECTABLE, MEDICATED WITH ATIVAN AND ATE BREAKFAST A FEEDER, EATING 100% THAN NAPPED UNTIL LUNCH. BACK TO BED AROUND 1500, PT BECAME MORE AGGATATED AND AGGRESSIVE. PARANOID AND THINKING THE STAFF KIDNAPPED HIM, GOT TO THE END OF BED AND WAS ACTIVELY TRYING TO GET OOB. GAVE ATIVAN DOSE AT THIS TIME WHICH WORKED EFFECTIVELY TO HELP PT RALAX AND CALMED OVER THE NEXT 2 HOURS INTO SLEEP. ALLOWED TO REST AND DID NOT WAKE FOR DINNER. REPORTED ALL TO NOC RN. PT HAD BM X2 THIS SHIFT, SOFT CARMONA MED-LG INCONT. VOIDING INCONT ALL SHIFT. SKIN INTACT.
--- NOTE | 2021-12-27 04:48 | NUR ---
SHIFT SUMMARY PT HAS BEEN RESTLESS AND AGITATED. HE HAS KEPT TRYING TO GET OUT OF BED AND STAND UP. HE WAS PLACED IN THE TRAE VEST TO PREVENT HIM FROM FALLING. HE HASHAD SEVERAL LAEGRE SOFT BM'S. HE REMAINS INCONTINENT. WAS STDD UP ONCE TO PLACE ON THE BEDSIDE COMMODE, BUT IT WAS A 2 MAX ASSIST. HE HAS HAD SOME PAIN IN HIS KNEES AND WAS MEDICATED PER EMAR. PT WILL REMAIN ON BEDREST. WILL CONTINUE TO MONITOR.
[2021-12-27 05:20] LABS: Hematocrit 35.1 % (37.0-53.0); Hemoglobin 10.7 g/dL (13.5-17.5); Mean Corpuscular HGB 26.8 pg (26.0-34.0); Mean Corpuscular HGB Conc 30.5 g/dL (31.5-36.5); Mean Corpuscular Volume 88 fL (80-100); Mean Platelet Volume 9.5 fL (9.1-12.4); Platelet Count 330 K/mm3 (150-400); RDW Coefficient Variation 16.4 % (11.7-14.2); Red Blood Cell Count 3.99 M/mm3 (4.30-5.90); White Blood Cell Count 10.74 K/mm3 (4.00-11.30)
[2021-12-27 05:51] LABS: Albumin, Blood 2.5 g/dL (3.4-5.0); Albumin/Globulin Ratio 0.5 (0.8-1.8); Bilirubin, Total 0.3 mg/dL (0.1-1.0); Bun/Creatinine Ratio 23.6 (12.0-20.0); Calcium, Blood 9.1 mg/dL (8.5-10.1); Creatinine, Blood 2.67 mg/dL (0.60-1.20); Globulin, Blood 4.6 g/dL (2.2-4.0); Potassium, Blood 3.6 mmol/L (3.5-5.5); Total Protein, Blood 7.1 g/dL (6.4-8.2)
--- NOTE | 2021-12-27 10:06 | NUR ---
DR. MARIA D TELLO NOTIFIED AT 0915 OF PATIENT FALL THAT OCCURED AT 0650. MD UPDATED ON CURRENT ASSESSMENT AND THAT PATIENT CLAIMED TO HAVE HIT HEAD BUT HOW PATIENT WAS FOUND ON THE FLOOR MADE IT APPEAR THAT MINIMAL OR NO HEAD TRAUMA FOUND. ONLY ONE NEW SKIN TEAR TO LEFT ARM AND PATIENT CURRENTLY HAS NO IV ACCESS BUT HAS NO IV MEDICATIONS PRESCRIBED. NO NEW ORDERS AND CONTINUE TO MONITOR.
--- NOTE | 2021-12-27 13:10 | NUR ---
PATIENT WAS AGGITATED AND PICKING AT BILATERAL ARMS MD NOTIFIED AND PLACING ORDERS TO HELP WITH ITCHING/AGITATION. ARMS ARE WRAPPED WITH COBAN TO PREVENT SKIN DAMAGE. PATIENT ONLY ORIENTED TO SELF
--- NOTE | 2021-12-27 14:47 | NUR ---
DR. MARIA D TELLO WAS NOTIFIED THAT PATIENT IS CONTINUING TO SCRATCH EXTREMITIES TO THE POINT OF BLEEDING. HYDROXIZINE 10MG PO INEFECTIVE. MD WILL PLACE ORDERS FOR HIGHER DOSE TO BE GIVEN TID FOR AGGITATION.
--- NOTE | 2021-12-27 22:10 | NUR ---
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 HAD TRAE VEST PULLED UP OVER HEAD, STATING HE WAS "LEAVING THIS PLACE". VERY IMPULSIVE, AGRESSIVE, NOT WANTING TO FOLLOW DIRECTIONS. INFORMED DR WILKS & HE ORDERED 2.5 MG IM HALDOL, WILL GIVE MED & MONITOR FOR EFFECTIVENESS. WCTM
--- NOTE | 2021-12-28 05:49 | NUR ---
SHIFT SUMMARY AOX3-SELF, PLACE, MONTH & FOLLOWING MINIMAL DIRECTIONS @BEGINNING OF SHIFT. HAS PERIODS OF INCREASED CONFUSION. GARBLED SPEECH. RESTLESS, IRRITABLE & BECAME MORE AGRESSIVE & ANGRY TOWARDS STAFF THIERRY PROGRESSED. READ PREVIOUS NOTE. SINCE PT WAS MEDICATED c 2.5MG IM HALDOL & 25MG ATARAX ROUGHLY 2 HR BEFORE HALDOL PT HAS RESTED SOUNDLY T/O NIGHT. PT DID ASK FOR "A SHOT" OR "MORE MEDS TO RELAX ME" WHEN HE COULD HARDLY KEEP EYES OPEN. VSS. REPORTS PAIN IN L KNEE, REPOSITIONED. DENIES N/V OR DYSPNEA. INCONT & ATTENDS CHANGED PRN. AWAITING SAFE DC PLANS. CALL LIGHT, TRAE & BED ALARM IN PLACE FOR SAFETY.
[2021-12-28 06:36] LABS: Albumin, Blood 2.3 g/dL (3.4-5.0); Anion Gap 7 mmol/L (6-16); Blood Urea Nitrogen 63 mg/dL (8-24); Bun/Creatinine Ratio 24.4 (12.0-20.0); CO2, Blood 26 mmol/L (21-32); Calcium, Blood 8.8 mg/dL (8.5-10.1); Chloride, Blood 112 mmol/L (98-108); Creatinine, Blood 2.58 mg/dL (0.60-1.20); Glomerular Filtration Rate 25 (60-); Glucose, Blood 104 mg/dL (70-99); Phosphorus, Blood 4.3 mg/dL (2.5-4.9); Potassium, Blood 3.5 mmol/L (3.5-5.5); Sodium, Blood 145 mmol/L (136-145)
--- NOTE | 2021-12-28 16:31 | NUR ---
PATIENT WAS LETHARGIC THIS MORING BUT WAS ABLE TO FOLLOW COMMANDS AND TAKE MEDICATIONS CRUSHED. RESTRAINTS WERE REMOVED THIS MORNING AND PATINET REMAINED CALM UNTIL ABOUT 1500 AND NEEDED PRN ATARAX. PATIENT IS AWAKE AND AT EASY IN BED AND A AND O TO SELF. AND ABLE TO ANSWER BASIC QUESTIONS. BED ALARM AND VIDEO MONITORING CONTINUED.
--- NOTE | 2021-12-28 16:51 | NUR ---
Met with pt along with Dr. Coulter. Pt has appeared to be confused regarding what hospice is. He did state today he wants to go home, but he also stated he would like to stop drinking, which is different than what he had previously stated. He told us today he thought hospice would "Help me quit drinking". We explained they wouldn't help him quit, but also explained he hasn't been drinking while in the hospital, and he has basically already quit by being here. He seemed to be pleasantly suprised by this. He also expressed interest in getting rid of current Hepatitis C, but I don't think [facility] will pay for this if he is actively drinking. Dr. Coulter doesn't feel this pt is appropriate or ready for hospice at this time. He is also going to order PT and OT for pt to see how he does with this.
[2021-12-29 05:28] LABS: BASOPHILS PERCENT AUTO 1 % (0-2); EOSINOPHILS ABSOLUTE AUTO 0.43 K/mm3 (0.00-0.68); EOSINOPHILS PERCENT AUTO 6 % (0-6); Hematocrit 33.4 % (37.0-53.0); Hemoglobin 10.3 g/dL (13.5-17.5); IMMATURE GRAN ABSOLUTE AUTO 0.02 K/mm3 (0.00-0.10); IMMATURE GRAN PERCENT AUTO 0 % (0-1); LYMPHOCYTES ABSOLUTE AUTO 1.47 K/mm3 (0.84-5.20); LYMPHOCYTES PERCENT AUTO 21 % (21-46); MONOCYTES ABSOLUTE AUTO 0.64 K/mm3 (0.16-1.47); MONOCYTES PERCENT AUTO 9 % (4-13); Mean Corpuscular HGB Conc 30.8 g/dL (31.5-36.5); Mean Corpuscular Volume 88 fL (80-100); NEUTROPHILS ABSOLUTE AUTO 4.38 K/mm3 (1.96-9.15); NEUTROPHILS PERCENT AUTO 62 % (41-73); Platelet Count 329 K/mm3 (150-400); RDW Coefficient Variation 16.7 % (11.7-14.2); RDW Standard Deviation 53.6 fL (35.1-46.3); Red Blood Cell Count 3.81 M/mm3 (4.30-5.90); White Blood Cell Count 7.04 K/mm3 (4.00-11.30)
--- NOTE | 2021-12-29 06:03 | NUR ---
SHIFT SUMMARY NO ACUTE CHANGES THIS SHIFT. AOX3-SELF, PLACE, DATE & FOLLOWING DIRECTIONS. HAS BEEN PLEASENT & COOPERATIVE c CARE. APOLOGIZED FOR PREVIOUS NIGHT BEHAVIOR. DENIES PAIN, N/V OR DYSPNEA. VSS. REPORTS FEELING RESTLESS, AGITATED, UNABLE TO RELAX-MEDICATED 2X c ATARAX PER EMAR. INCONT OF URINE & BM, CHANGED & REPOSITIONED PRN. CALL LIGHT IN REACH, WCTM.
[2021-12-29 06:12] LABS: Albumin, Blood 2.4 g/dL (3.4-5.0); Albumin/Globulin Ratio 0.5 (0.8-1.8); Bilirubin, Total 0.5 mg/dL (0.1-1.0); Calcium, Blood 8.8 mg/dL (8.5-10.1); Creatinine, Blood 2.54 mg/dL (0.60-1.20); Globulin, Blood 4.4 g/dL (2.2-4.0); Potassium, Blood 3.7 mmol/L (3.5-5.5); Total Protein, Blood 6.8 g/dL (6.4-8.2)
--- NOTE | 2021-12-29 12:31 | NUR ---
PATIENT HAS IMPROVED GREATLY. PATIENT IS A AND 0 3-4X. PATIENT WAS ABLE TO WORK WITH THERAPY AND WALK AROUND IN THE ROOM WITH A 1P ASSIST WITH A WALKER. PATIENT IS CALM AND EASY TO WORK WITH COMPARED TO YESTERDAYS AGGITATION.
--- NOTE | 2021-12-29 17:18 | NUR ---
Pt is now working with PT and OT. The plan has shifted, and pt will likely be transferred to SNF when he is strong enough until he is able to go home, or into treatment for alcohol abuse if patient is still agreeable. Palliative care will continue with supportive visits.
[2021-12-30 06:14] LABS: Albumin, Blood 2.4 g/dL (3.4-5.0); Albumin/Globulin Ratio 0.6 (0.8-1.8); Bilirubin, Total 0.4 mg/dL (0.1-1.0); Bun/Creatinine Ratio 25.6 (12.0-20.0); Calcium, Blood 8.5 mg/dL (8.5-10.1); Creatinine, Blood 2.54 mg/dL (0.60-1.20); Globulin, Blood 4.3 g/dL (2.2-4.0); Potassium, Blood 3.7 mmol/L (3.5-5.5); Total Protein, Blood 6.7 g/dL (6.4-8.2)
--- NOTE | 2021-12-30 06:46 | NUR ---
SHIFT SUMMARY PT RESTING COMFORTABLY WHEN ROUNDING. TURNS SELF IN BED, INCONTINENT. NO PAIN THROUGHOUT SHIFT. PT REMAINED CALM, FOLLOW COMMANDS.
--- NOTE | 2021-12-30 09:00 | NUR ---
pt laying in bed eating breakfast, a/ox2, confused at times, cooperative with care, follows commands well, denies pain, wants to go home, lungs are clear a bit dim in bases, resp even and unlabored, on r/a, hrr, no edema noted, ppp+2, cap refill <3sec, vs stable, afebrile, iv access is clear and patent, btx4, abd flat soft nontender, voids without diff, skin c/w/d, maew, can get oob with one person assist, declan, call light in reach.
--- NOTE | 2021-12-30 16:42 | NUR ---
pt was working with PT and slid off the toilet onto the floor, landed on his left elbow and left hip, he denies he hit anything, denies he hit his head, notified Dr. Leyva, he did get a small pea size skin tear to his left forarm near the elbow, lift was used to get him back to bed, call light in reach.
--- NOTE | 2021-12-30 17:50 | NUR ---
pt resting in bed, he did have a fall with PT today, is ok, states elbow and knee are just sore, he can move ext. no further changes this shift. call light in reach.
[2021-12-31 05:30] LABS: Albumin, Blood 2.5 g/dL (3.4-5.0); Anion Gap 7 mmol/L (6-16); Blood Urea Nitrogen 67 mg/dL (8-24); Bun/Creatinine Ratio 23.9 (12.0-20.0); CO2, Blood 26 mmol/L (21-32); Calcium, Blood 8.5 mg/dL (8.5-10.1); Chloride, Blood 104 mmol/L (98-108); Glomerular Filtration Rate 23 (60-); Glucose, Blood 112 mg/dL (70-99); Phosphorus, Blood 4.1 mg/dL (2.5-4.9); Potassium, Blood 3.5 mmol/L (3.5-5.5); Sodium, Blood 137 mmol/L (136-145)
--- NOTE | 2021-12-31 06:46 | NUR ---
SHIFT SUMMARY PT IS A 66 Y/O MALE, ADMITTED FOR NEW ONSET CHF. HE IS A&O X 3, WITH PERIODS OF CONFUSION. 1PA C FWW TO BATHROOM. CONTINENT/INCONTINENT. VITAL SIGNS STABLE. HE WAS MEDICATED ONCE FOR KNEE AND ELBOW PAIN R/T A RECENT GLF. NO C/O NAUSEA OR SOB. NO ACUTE CHANGES IN PT CONDITION NOTED DURING THE NIGHT. WILL CONTINUE TO MONITOR AND TREAT PER EMAR UNTIL HAND OFF TO DAY SHIFT RN.
--- NOTE | 2021-12-31 19:26 | NUR ---
SHIFT SUMMARY NO SIGNIFICANT EVENTS T/O SHIFT. PATIENT WORKED WITH PT/OT TODAY AND TOLERATED WELL. PATIENT GOT UP TO CHAIR FOR MEALS. 1PA WITH GAIT BELT AND WALKER. VSS. BED IN LOW POSITION AND CALL LIGHT IN REACH. WILL CONTINNUE TO MONITOR.
--- NOTE | 2022-01-01 07:55 | NUR ---
SHIFT SUMMARY PATIENT ALERT AND ORIENTED X3. HAD NO COMPLAINTS OF PAIN OR SHORTNESS OF BREATH. NO ACUTE ISSUES NOTED OVERNIGHT. BED IN LOWEST POSITION WITH WHEELS LOCKED AND ALARM ON. CALL LIGHT WITHIN REACH. REPORT GIVEN TO ONCOMING RN.
--- NOTE | 2022-01-01 18:47 | NUR ---
SHIFT SUMMARY PATIENT WORKED WITH PT TODAY. TOLERATED WELL. PATIENT UP TO CHAIR FOR MEALS. GOOD APPETITE THIS SHIFT. PATIENT VERY MOTIVATED TO BE MORE ACTIVE. PATIENT AMBULATED IN HALLS WITH SBA USING WALKER AND GAIT BELT. NO SIGNIFICANT EVENTS. VSS. BED IN LOW POSITION WITH BED ALARM ON AND CALL LIGHT IN REACH. WILL CONTINUE TO MONITOR.
--- NOTE | 2022-01-02 06:42 | NUR ---
SHIFT SUMMARY PATIENT ALERT AND ORIENTED X2-3. HAD NO COMPLAINTS OF PAIN OR SHORTNESS OF BREATH. NO ACUTE ISSUES NOTED OVERNIGHT. BED IN LOWEST POSITION WITH WHEELS LOCKED AND ALARM ON. CALL LIGHT WITHIN REACH. REPORT GIVEN TO ONCOMING RN.
--- NOTE | 2022-01-02 18:10 | NUR ---
PATIENT IS AWKE,ALERT AND ORIENTED TIME THREE.DENIES PAIN. PATIENT ATE 100% OF ALL MEALS. PATIENT SIT IN CHAIR FOR ALL MEALS. NO NEW ORDER FROM DR. VANESSA, PATIENT IS PENDING PLACEMENT.
--- NOTE | 2022-01-04 04:38 | NUR ---
Patient Alert and oriented. Sitting in his bed using his phone. He denies pain and diconfort at this time. Patient is waitting for placement. No new acute distress notes. Patient is able to voice his needs. We will continue to monitor patient until report giving to the oncoming nurse.
[2022-01-05 08:09] LABS: Calcium, Blood 8.5 mg/dL (8.5-10.1); Creatinine, Blood 2.23 mg/dL (0.60-1.20); Potassium, Blood 3.7 mmol/L (3.5-5.5)
--- NOTE | 2022-01-05 17:24 | NUR ---
SUMMARY PT SITTING UP IN THE CHAIR AT THE BEDSIDE, HAS BEEN UP TO THE CHAIR SEVERAL TIMES, HAS WORKED WITH THERAPY, HAS HAD A VISITOR, PT HAS DENIED ANY PAIN, NAUSEA OR SOB, VSS, WILL CONT TO MONITOR
--- NOTE | 2022-01-06 06:17 | NUR ---
Rn summary: Patient is alert and oriented. He is medically stable and awaiting safe placement. Pt assessment is negative except pt heart rate bounding, with possible murmur. Pt has rested well tonight with minimal needs. Call light in reach. Bed alarm is on.
--- NOTE | 2022-01-06 20:05 | NUR ---
SHIFT SUMMARY PT AXO, PLEASANT AND COOPERATIVE WITH CARE. NO ACUTE CHANGES THIS SHIFT. PT DENIES SOB, NV AND PAIN. UP WITH 1 ASSIST. BED ALARM ON. VSS. 100% ON RA. BED IN LOW POSITION, CALL LIGHT WITHIN REACH. REPORT GIVEN TO CHIMNEY SWEEPER NURSE WHO ASSUMES CARE
--- NOTE | 2022-01-07 03:50 | NUR ---
SHIFT SUMMARY PT A/OX3 DISORIENTED TO TIME. INDEPENDENT REPOSITIONING IN BED. BED ALARM ACTIVATED, CALL BAL AND PERSONAL BELONGINGS IN REACH, BED IN LOW POSITION. PAIN FREE THROUGHOUT SHIFT. INCONTINENT VOIDING, LARGE BOWEL MOVEMENT THIS SHIFT
--- NOTE | 2022-01-07 16:56 | NUR ---
SHIFT SUMMARY PATIENT DENIES PAIN, NAUSEA, AND SHORTNESS OF BREATH. PATIENT IS INDEPENDENT IN ROOM, PER PT SESSION TODAY. PT IS NOW RECOMMENDING HOME HEALTH DUE TO IMPROVEMENT IN ADLS. PATIENT TALKED ON PHONE A LOT TODAY WITH FAMILY AND FRIENDS. PATIENT TEARFUL ABOUT THIS. PATIENT STATES HE MISSES THEM. PATIENT IS EATING AND DRINKING WELL. PATIENT IS PLEASANT AND COOPERATIVE WITH CARE.
--- NOTE | 2022-01-08 04:07 | NUR ---
SHIFT SUMMARY: PT REMAINED A/O X4, ADLIB AMBULATION AND INDEPENDENT PERFORMING ADL'S. PT WAS ABLE TO SLEEP YET DID COMPLAIN OF SLIGHT RESTLESSNESS DURING THE NIGHT. BELONGINGS REMAINED IN REACH, BED IN LOWEST POSITION, VITALS STABLE.
[2022-01-08] MEDS ORDERED: FURO40 PO (09:33)
[2022-01-08] MEDS ORDERED: MELA3 PO (09:33)
[2022-01-08] MEDS ORDERED: MULVITA PO (09:33)
[2022-01-08] MEDS ORDERED: AMLO5 PO (09:33)
[2022-01-08] MEDS ORDERED: NICO21TP TOP (09:34)
[2022-01-08] MEDS ORDERED: B-1100 M1 PO (09:34)
[2022-01-08] MEDS ORDERED: METO25ER PO (09:35)
--- NOTE | 2022-01-08 15:48 | NUR ---
DISCHARGE PATIENT TRANSPORTED VIA WHEELCHAIR TO [facility]. DISCHARGE INSTRUCTIONS EXPLAINED TO PATIENT. PATIENT STATED UNDERSTANDING. PACKET SENT WITH PATIENT. NO IV ACCESS. BELONGINGS SENT WITH PATIENT. MEDICATIONS SENT TO PREFERRED PHARMACY. PATIENT TO SCHEDULE FOLLOW UP ON MONDAY. HOME HEALTH TO FOLLOW UP WITH PATIENT.
== END 2022-01-08 15:43 | disposition home health service (06) | DRG 291 ==
LOC: ER 19:16 → MEDS 21:41 → PCU 21:41 → MEDS 12-24 12:00 → ENPENDDIS 01-08 09:07 → MEDS 01-08 15:43
PROVIDERS: Emergency Medicine; Family Medicine; Hospitalist; Internal Medicine; Student in an Organized Health Care Education/Training Program; ADMIT Internal Medicine
PROC: HZ2ZZZZ Detoxification Services for Substance Abuse Treatment (ICD-10-PCS; principal; 2021-12-16)
PROC: 5A09457 Assistance with Respiratory Ventilation, 24-96 Consecutive Hours, Continuous Positive Airway Pressure (ICD-10-PCS; 2021-12-24)
DX: I13.0 Hypertensive heart and chronic kidney disease with heart failure and stage 1 through stage 4 chronic kidney disease, or unspecified chronic kidney disease (principal); J18.9 Pneumonia, unspecified organism; I50.41 Acute combined systolic (congestive) and diastolic (congestive) heart failure; J96.91 Respiratory failure, unspecified with hypoxia; Z66 Do not resuscitate; N17.9 Acute kidney failure, unspecified; E87.0 Hyperosmolality and hypernatremia; F10.239 Alcohol dependence with withdrawal, unspecified; E87.2 Acidosis; Z20.822 Contact with and (suspected) exposure to COVID-19; R94.31 Abnormal electrocardiogram [ECG] [EKG]; R79.89 Other specified abnormal findings of blood chemistry; Z78.1 Physical restraint status; R31.9 Hematuria, unspecified; I34.0 Nonrheumatic mitral (valve) insufficiency; N18.32 Chronic kidney disease, stage 3b; Z71.41 Alcohol abuse counseling and surveillance of alcoholic; I42.6 Alcoholic cardiomyopathy; E87.6 Hypokalemia; F15.10 Other stimulant abuse, uncomplicated; F17.210 Nicotine dependence, cigarettes, uncomplicated; Z71.51 Drug abuse counseling and surveillance of drug abuser; Z79.899 Other long term (current) drug therapy; Z98.890 Other specified postprocedural states; Z86.73 Personal history of transient ischemic attack (TIA), and cerebral infarction without residual deficits
CPT/HCPCS: 0241U; 36415; 36600; 71045; 80048; 80053; 80069; 81001; 82140; 82550; 82803; 83605; 83735; 83880; 84132; 84145; 84484; 85025; 85027; 87040; 92526; 92610; 93005; 93010; 93306; 94660; 94760; 94762; 96365; 96375; 97110; 97112; 97116; 97162; 97166; 97530; 97535; 99285-25; A9270; C1751; J0360; J0696; J1630; J1650; J1940; J2060; J2405; J3411; J3475; J3480; J7050; J7070

== ENCOUNTER 2022-02-19 22:30 | Inpatient (IN) | payer OTHER ==
[~2022-02-19] VITALS: Ht 175.3 cm; Wt 60.8 kg
[~2022-02-19 22:30] MED LIST changes: +B-1100 M1 PO; +FURO40 PO; +MELA3 PO; +METO25ER PO; +MULVITA PO; +NICO21TP TOP
[2022-02-19 23:00] LABS: BASOPHILS PERCENT AUTO 1 % (0-2); EOSINOPHILS ABSOLUTE AUTO 0.25 K/mm3 (0.00-0.68); EOSINOPHILS PERCENT AUTO 3 % (0-6); Hematocrit 25.8 % (37.0-53.0); IMMATURE GRAN ABSOLUTE AUTO 0.04 K/mm3 (0.00-0.10); IMMATURE GRAN PERCENT AUTO 0 % (0-1); LYMPHOCYTES PERCENT AUTO 16 % (21-46); MONOCYTES PERCENT AUTO 11 % (4-13); Mean Corpuscular HGB 24.3 pg (26.0-34.0); Mean Corpuscular Volume 78 fL (80-100); Mean Platelet Volume 9.5 fL (9.1-12.4); NEUTROPHILS ABSOLUTE AUTO 6.68 K/mm3 (1.96-9.15); NEUTROPHILS PERCENT AUTO 69 % (41-73); Platelet Count 503 K/mm3 (150-400); RDW Coefficient Variation 18.1 % (11.7-14.2); RDW Standard Deviation 51.8 fL (35.1-46.3); Red Blood Cell Count 3.29 M/mm3 (4.30-5.90); White Blood Cell Count 9.67 K/mm3 (4.00-11.30)
[2022-02-19 23:19] LABS: Albumin, Blood 2.8 g/dL (3.4-5.0); Albumin/Globulin Ratio 0.6 (0.8-1.8); Bilirubin, Total 0.7 mg/dL (0.1-1.0); Bun/Creatinine Ratio 19.7 (12.0-20.0); Calcium, Blood 8.8 mg/dL (8.5-10.1); Creatinine, Blood 2.34 mg/dL (0.60-1.20); Globulin, Blood 4.5 g/dL (2.2-4.0); Potassium, Blood 3.6 mmol/L (3.5-5.5); Total Protein, Blood 7.3 g/dL (6.4-8.2)
[2022-02-20 00:02] LABS: Magnesium, Blood 2.3 mg/dL (1.6-2.4)
[2022-02-20 00:45] LABS: International Normalized Ratio 1.11; Prothrombin Time Results 11.6 Sec (9.7-11.5)
[2022-02-20 02:44] LABS: Source, Urine Clean Catch
[2022-02-20 02:47] LABS: Bilirubin, Urine Neg (Neg); Blood, Urine Neg (Neg); Glucose Qualitative, Urine Neg (Neg); Ketones, Urine Neg (Neg); Leukocyte Esterase, Urine Neg (Neg); Nitrite, Urine Neg (Neg); Protein, Urine 2+ (Neg); Urobilinogen, Urine NORM (Normal)
[2022-02-20 02:54] LABS: Appearance, Urine Clear (Clear); Bacteria Not Seen /hpf; Color, Urine Pale Yellow (P-Yellow); Red Blood Cells, Urine Not Seen /hpf (0-2); Squamous Epithelial Cells Not Seen /hpf (Few); White Blood Cells, Urine Not Seen /hpf (0-5)
--- NOTE | 2022-02-20 05:43 | NUR ---
SHIFT SUMMARY ASSUMED CARE OF PT AT 0130. PT IS A/OX4. HEART SOUNDS REGULAR. LUNG SOUNDS HAVE FINE CRACKLES AT THE BASES. PT WAS ON A NONREBREATHER UPON ADMISSION TO UNIT BUT WAS QUICKLY TITRATED DOWN TO 6L NC. SATURATIONS ARE DIFFICULT TO ASSESS PT LIKES TO SLEEP ON HIS HANDS. PT URINATES CLEAR YELLOW URINE FREIQUENTLY. PT HAS PAIN WITH URINATION, UA NEGATIVE. PT STATES THAT HE HAS HAD PAINFUL URINATION FOR ABOUT 3 YEARS NOW. PT WAS A 1P ASSIST TO BED. AND HAS BEEN SLEEPING WHILE ON THE UNIT.
[2022-02-20 08:02] LABS: Hematocrit 26.3 % (37.0-53.0); Hemoglobin 8.2 g/dL (13.5-17.5); Mean Corpuscular HGB 24.2 pg (26.0-34.0); Mean Corpuscular HGB Conc 31.2 g/dL (31.5-36.5); Mean Corpuscular Volume 78 fL (80-100); Mean Platelet Volume 9.3 fL (9.1-12.4); Platelet Count 493 K/mm3 (150-400); RDW Coefficient Variation 18.3 % (11.7-14.2); RDW Standard Deviation 51.2 fL (35.1-46.3); Red Blood Cell Count 3.39 M/mm3 (4.30-5.90); White Blood Cell Count 10.21 K/mm3 (4.00-11.30)
[2022-02-20 08:33] LABS: Bun/Creatinine Ratio 19.8 (12.0-20.0); Calcium, Blood 8.7 mg/dL (8.5-10.1); Creatinine, Blood 2.32 mg/dL (0.60-1.20); Potassium, Blood 3.3 mmol/L (3.5-5.5)
--- NOTE | 2022-02-20 15:58 | NUR ---
Shift Summary Pt remains A&Ox4. VSS. Afebrile. No c/o pain. AUO. No BM. Tolerating current diet. Weaned to 3L NC, no s/s of respiratory distress. Frequent rounds to ensure pt safety. Pt encouraged to reposition q2hr and pressure points offloaded to prevent pressure ulcers. Pt in no apparent distress at this time. Will continue to monitor until transfer of care to oncoming RN.
--- NOTE | 2022-02-20 19:51 | NUR ---
CARE ASSSUMPTION NOTE AMAURY KU AND KRISTIN HORVATH ASSUMED CARE OF PATIENT AT 1900. REPORT TAKEN FROM EMERSON HORVATH.
--- NOTE | 2022-02-21 04:01 | NUR ---
SHIFT SUMMARY PATIENT A&O X4. NO COMPLAINTS OF PAIN. ON 2L NC, SATTING >95%; NO COMPLAINTS OF SOB WITH EXERTION. SBP 110-120. SINUS RHYTHM ON TELE WITH HR 80-90S. AFEBRILE. PATIENT CONTINENT AND INDEPENDENT WITH B/B. FREQUENTLY USED THE URINAL DURING THE SHIFT. CONTINUOUS COMPRESSION DEVICE ON BILATERAL CALVES. PATIENT ABLE TO REPOSITION SELF IN BED. CALL LIGHT WITHIN REACH AND BED IN LOWEST POSITION. FREQUENT CHECKS FOR SAFETY. WILL CONTINUE TO MONITOR.
[2022-02-21 05:48] LABS: Bun/Creatinine Ratio 21.1 (12.0-20.0); Calcium, Blood 8.7 mg/dL (8.5-10.1); Creatinine, Blood 2.27 mg/dL (0.60-1.20); Magnesium, Blood 2.1 mg/dL (1.6-2.4); Potassium, Blood 3.1 mmol/L (3.5-5.5)
[2022-02-21] MEDS ORDERED: POTA10T PO (11:43)
[2022-02-21] MEDS ORDERED: LISI5 PO (11:44)
--- NOTE | 2022-02-21 13:29 | NUR ---
Discharge Summary Pt discharged home. Discharge instructions provided, pt verbalized understaning. All belongins including home medications sent home with pt. No apparent distress noted at time of discharge.
== END 2022-02-21 14:00 | disposition home or self-care (01) | DRG 917 ==
LOC: ER 22:30 → PCU 02-20 00:31
PROVIDERS: Internal Medicine; Student in an Organized Health Care Education/Training Program; ADMIT Internal Medicine
PROC: 5A09357 Assistance with Respiratory Ventilation, Less than 24 Consecutive Hours, Continuous Positive Airway Pressure (ICD-10-PCS; principal; 2022-02-20)
DX: T43.621A Poisoning by amphetamines, accidental (unintentional), initial encounter (principal); I50.41 Acute combined systolic (congestive) and diastolic (congestive) heart failure; J96.01 Acute respiratory failure with hypoxia; I42.6 Alcoholic cardiomyopathy; I13.0 Hypertensive heart and chronic kidney disease with heart failure and stage 1 through stage 4 chronic kidney disease, or unspecified chronic kidney disease; F10.20 Alcohol dependence, uncomplicated; D50.9 Iron deficiency anemia, unspecified; B19.20 Unspecified viral hepatitis C without hepatic coma; E87.6 Hypokalemia; I25.2 Old myocardial infarction; Z79.899 Other long term (current) drug therapy; F17.200 Nicotine dependence, unspecified, uncomplicated
CPT/HCPCS: 36415; 71045; 80048; 80053; 81001; 82728; 83540; 83550; 83735; 83880; 84484; 85025; 85027; 85610; 93005; 93010; 94660; 94760; 94762; 96374; 99285-25; A9270; J1644; J1940

== ENCOUNTER 2022-04-25 20:49 | Emergency (ER) | payer OTHER ==
[~2022-04-25] VITALS: Ht 175.3 cm; Wt 70.3 kg
[~2022-04-25 20:49] MED LIST changes: +LISI5 PO; +POTA10T PO
== END 2022-04-25 23:00 | disposition home or self-care (01) ==
LOC: ER 20:49
DX: R53.83 Other fatigue (principal); I10 Essential (primary) hypertension; F17.290 Nicotine dependence, other tobacco product, uncomplicated; Z79.899 Other long term (current) drug therapy; Z59.00 Homelessness unspecified
CPT/HCPCS: 99283

== ENCOUNTER 2022-09-14 22:40 | Emergency (ER) | payer OTHER ==
[~2022-09-14] VITALS: Ht 175.3 cm; Wt 77.1 kg
[~2022-09-14 22:40] MED LIST changes: +FURO20 PO
[2022-09-14 22:58] LABS: BASOPHILS ABSOLUTE AUTO 0.09 K/mm3 (0.00-0.23); BASOPHILS PERCENT AUTO 1 % (0-2); EOSINOPHILS ABSOLUTE AUTO 0.19 K/mm3 (0.00-0.68); EOSINOPHILS PERCENT AUTO 2 % (0-6); Hematocrit 23.8 % (37.0-53.0); Hemoglobin 7.8 g/dL (13.5-17.5); IMMATURE GRAN ABSOLUTE AUTO 0.12 K/mm3 (0.00-0.10); IMMATURE GRAN PERCENT AUTO 1 % (0-1); LYMPHOCYTES ABSOLUTE AUTO 1.05 K/mm3 (0.84-5.20); LYMPHOCYTES PERCENT AUTO 12 % (21-46); MONOCYTES ABSOLUTE AUTO 1.02 K/mm3 (0.16-1.47); MONOCYTES PERCENT AUTO 12 % (4-13); Mean Corpuscular HGB 28.7 pg (26.0-34.0); Mean Corpuscular HGB Conc 32.8 g/dL (31.5-36.5); Mean Corpuscular Volume 88 fL (80-100); Mean Platelet Volume 8.8 fL (9.1-12.4); NEUTROPHILS ABSOLUTE AUTO 6.43 K/mm3 (1.96-9.15); NEUTROPHILS PERCENT AUTO 72 % (41-73); Platelet Count 563 K/mm3 (150-400); RDW Coefficient Variation 17.2 % (11.7-14.2); RDW Standard Deviation 54.7 fL (35.1-46.3); Red Blood Cell Count 2.72 M/mm3 (4.30-5.90)
[2022-09-14 23:15] LABS: Albumin, Blood 2.5 g/dL (3.4-5.0); Albumin/Globulin Ratio 0.5 (0.8-1.8); Bilirubin, Total 0.4 mg/dL (0.1-1.0); Bun/Creatinine Ratio 17.3 (12.0-20.0); Calcium, Blood 8.4 mg/dL (8.5-10.1); Creatinine, Blood 2.48 mg/dL (0.60-1.20); Potassium, Blood 3.5 mmol/L (3.5-5.5); Total Protein, Blood 7.5 g/dL (6.4-8.2)
== END 2022-09-15 00:46 | disposition home or self-care (01) ==
LOC: ER 22:40
PROVIDERS: Emergency Medicine
DX: I11.0 Hypertensive heart disease with heart failure (principal); I50.9 Heart failure, unspecified; F17.290 Nicotine dependence, other tobacco product, uncomplicated; Z79.899 Other long term (current) drug therapy; Z91.14 Patient's other noncompliance with medication regimen
CPT/HCPCS: 36415; 71045; 80053; 83880; 84484; 85025; 93005; 93010; J1940

== ENCOUNTER 2022-09-22 03:41 | Inpatient (IN) | payer MEDICARE ==
[~2022-09-22] VITALS: Ht 175.3 cm; Wt 55.3 kg
[2022-09-22 05:32] LABS: BASOPHILS ABSOLUTE AUTO 0.04 K/mm3 (0.00-0.23); BASOPHILS PERCENT AUTO 0 % (0-2); EOSINOPHILS ABSOLUTE AUTO 0.01 K/mm3 (0.00-0.68); EOSINOPHILS PERCENT AUTO 0 % (0-6); Hemoglobin 9.5 g/dL (13.5-17.5); IMMATURE GRAN ABSOLUTE AUTO 0.12 K/mm3 (0.00-0.10); IMMATURE GRAN PERCENT AUTO 1 % (0-1); LYMPHOCYTES ABSOLUTE AUTO 0.76 K/mm3 (0.84-5.20); LYMPHOCYTES PERCENT AUTO 6 % (21-46); MONOCYTES ABSOLUTE AUTO 1.53 K/mm3 (0.16-1.47); MONOCYTES PERCENT AUTO 12 % (4-13); Mean Corpuscular HGB 28.3 pg (26.0-34.0); Mean Corpuscular HGB Conc 32.8 g/dL (31.5-36.5); Mean Corpuscular Volume 86 fL (80-100); Mean Platelet Volume 10.2 fL (9.1-12.4); NEUTROPHILS ABSOLUTE AUTO 10.34 K/mm3 (1.96-9.15); NEUTROPHILS PERCENT AUTO 81 % (41-73); NRBC Auto 1.6 /100 WBC (0.0-0.2); Platelet Count 246 K/mm3 (150-400); RDW Coefficient Variation 18.1 % (11.7-14.2); RDW Standard Deviation 57.1 fL (35.1-46.3); Red Blood Cell Count 3.36 M/mm3 (4.30-5.90)
[2022-09-22 06:02] LABS: Albumin, Blood 2.8 g/dL (3.4-5.0); Albumin/Globulin Ratio 0.6 (0.8-1.8); Bilirubin, Total 2.8 mg/dL (0.1-1.0); Bun/Creatinine Ratio 25.2 (12.0-20.0); Calcium, Blood 8.2 mg/dL (8.5-10.1); Creatinine, Blood 2.94 mg/dL (0.60-1.20); Globulin, Blood 4.7 g/dL (2.2-4.0); Potassium, Blood 3.7 mmol/L (3.5-5.5); Total Protein, Blood 7.5 g/dL (6.4-8.2)
[2022-09-22 07:30] LABS: Influenza A, PCR NEGATIVE (NEGATIVE); Influenza B, PCR NEGATIVE (NEGATIVE); Resp Syncytial Virus, PCR NEGATIVE (NEGATIVE); SARS-Cov-2 (COVID-19) PCR, MMC NEGATIVE (NEGATIVE)
[2022-09-22 09:36] LABS: Base Excess Venous -8.8 mmol/L; Bicarbonate Venous 18.2 mmol/L (24.0-30.0); PCO2 Venous 26.1 mmHg (38-42)
[2022-09-22 11:16] LABS: U Amphetamine Screen DETECTED; U Barbituate Screen Not Detected; U Benzodiazapine Screen Not Detected; U Buprenorphine Screen Not Detected; U Cannabinoids Screen Not Detected; U Cocaine Screen Not Detected; U Methadone Screen Not Detected; U Methamphetamine Screen DETECTED; U Opiates Screen Not Detected; U Oxycodone Screen Not Detected; U Phencyclidine Screen Not Detected; U Propoxyphene Screen Not Detected
--- NOTE | 2022-09-22 16:50 | NUR ---
SHIFT SUMMARY PATIENT IS ALERT AND ORIENTED. PATIENT WAS ADMITTED FOR ACUTE CHF EXASTERBATION. PATIENT IS ON RA. PATIENT IS ON TELE, SINUS 88. PATIENT WAS ADMITTED WITH ELEVATED CRITICAL LACTIC ACID AND IS TRENDING LOWER TO 3.8. NOTIFIED OF CRITICAL RESULT AND TRENDING LOWER. PATIENT IS A STANDBY ASSIST. PATIENT IS USING URINAL IND. PATIENT HAS NOT COMPLAINED OF PAIN, NAUSEA, SOB OR VOMITING THIS SHIFT. BED IN LOCKED AND LOWEST POSITION. CALL LIGHT IN PLACE. WILL MONITOR UNTIL SHIFT CHANGE.
--- NOTE | 2022-09-23 05:03 | NUR ---
Patient resting at this time, many noises during sleep, patient asked if ok and responded yes.
[2022-09-23 05:20] LABS: BASOPHILS ABSOLUTE AUTO 0.03 K/mm3 (0.00-0.23); BASOPHILS PERCENT AUTO 0 % (0-2); EOSINOPHILS ABSOLUTE AUTO 0.11 K/mm3 (0.00-0.68); EOSINOPHILS PERCENT AUTO 1 % (0-6); Hematocrit 25.1 % (37.0-53.0); Hemoglobin 8.4 g/dL (13.5-17.5); IMMATURE GRAN ABSOLUTE AUTO 0.08 K/mm3 (0.00-0.10); IMMATURE GRAN PERCENT AUTO 1 % (0-1); LYMPHOCYTES ABSOLUTE AUTO 0.72 K/mm3 (0.84-5.20); LYMPHOCYTES PERCENT AUTO 6 % (21-46); MONOCYTES ABSOLUTE AUTO 1.48 K/mm3 (0.16-1.47); MONOCYTES PERCENT AUTO 13 % (4-13); Mean Corpuscular HGB 28.1 pg (26.0-34.0); Mean Corpuscular HGB Conc 33.5 g/dL (31.5-36.5); Mean Corpuscular Volume 84 fL (80-100); Mean Platelet Volume 10.5 fL (9.1-12.4); NEUTROPHILS ABSOLUTE AUTO 9.29 K/mm3 (1.96-9.15); NEUTROPHILS PERCENT AUTO 79 % (41-73); NRBC ABSOLUTE 0.26 K/mm3 (0.00-0.02); NRBC Auto 2.2 /100 WBC (0.0-0.2); Platelet Count 285 K/mm3 (150-400); RDW Coefficient Variation 17.6 % (11.7-14.2); RDW Standard Deviation 54.4 fL (35.1-46.3); Red Blood Cell Count 2.99 M/mm3 (4.30-5.90); White Blood Cell Count 11.71 K/mm3 (4.00-11.30)
[2022-09-23 05:45] LABS: Bun/Creatinine Ratio 25.9 (12.0-20.0); Creatinine, Blood 3.44 mg/dL (0.60-1.20); Potassium, Blood 3.6 mmol/L (3.5-5.5)
--- NOTE | 2022-09-23 09:50 | NUR ---
RECEIVED CALLED FROM [facility] KARTIK HOLLOWAY AROUND 0923 REGARDING PATIENT HAD EPISODE OF PROLONG QTC OF 0.66. PER [facility] THIS IS THE LONGEST THAT PATIENT HAD SINCE ADMISSION. CALLED DR. SINGER TO REPORT THIS ISSUE. RECEIVED ORDER FROM DR. SINGER TO PERFORM AN EKG. PATIENT DENIES CP/CHEST DISCOMFORT AT THIS TIME.
[2022-09-23 12:30] LABS: Albumin, Blood 2.4 g/dL (3.4-5.0); Albumin/Globulin Ratio 0.6 (0.8-1.8); Bilirubin, Total 1.9 mg/dL (0.1-1.0); Bun/Creatinine Ratio 26.5 (12.0-20.0); Calcium, Blood 7.8 mg/dL (8.5-10.1); Creatinine, Blood 3.43 mg/dL (0.60-1.20); Potassium, Blood 3.4 mmol/L (3.5-5.5); Total Protein, Blood 6.4 g/dL (6.4-8.2)
--- NOTE | 2022-09-23 18:39 | NUR ---
SHIFT SUMMARY: PATIENT A&OX4. PLEASANT AND COOPERATIVE WITH CARE. USES CALL LIGHT APPROPRIATELY AND ABLE TO ADVOCATE FOR HIS NEEDS. RECEIVED CALL FROM LAB AROUND 1723 REGARDING CRITICAL MAGNESIUM VALUE OF 9.7. CALLED DR. MOBLEY TO REPORT THE CRITICAL LAB VALUE. RECEIVED NO NEW ORDER AT THIS TIME. PATIENT HAS BEEN CONTINENT AND USES URINAL AT BEDSIDE. DENIES CP/CHEST DISCOMFORT. ON TELE, SR IN THE 60'S BPM WITH QTC RANGES 0.60-0.66'S. VITAL SIGNS REVIEWED. BED IN LOWEST POSITION, LOCKED AND CALL LIGHT IN REACH.
--- NOTE | 2022-09-24 03:27 | NUR ---
Patient lays in bed and loudly complains, has spilled several drinks and urinal on floor, resting at this time.
[2022-09-24 04:40] LABS: BASOPHILS ABSOLUTE AUTO 0.02 K/mm3 (0.00-0.23); BASOPHILS PERCENT AUTO 0 % (0-2); EOSINOPHILS ABSOLUTE AUTO 0.17 K/mm3 (0.00-0.68); EOSINOPHILS PERCENT AUTO 2 % (0-6); Hematocrit 25.2 % (37.0-53.0); Hemoglobin 8.4 g/dL (13.5-17.5); IMMATURE GRAN ABSOLUTE AUTO 0.09 K/mm3 (0.00-0.10); IMMATURE GRAN PERCENT AUTO 1 % (0-1); LYMPHOCYTES ABSOLUTE AUTO 0.68 K/mm3 (0.84-5.20); LYMPHOCYTES PERCENT AUTO 6 % (21-46); MONOCYTES ABSOLUTE AUTO 1.34 K/mm3 (0.16-1.47); MONOCYTES PERCENT AUTO 13 % (4-13); Mean Corpuscular HGB 28.2 pg (26.0-34.0); Mean Corpuscular HGB Conc 33.3 g/dL (31.5-36.5); Mean Corpuscular Volume 85 fL (80-100); Mean Platelet Volume 10.5 fL (9.1-12.4); NEUTROPHILS ABSOLUTE AUTO 8.39 K/mm3 (1.96-9.15); NEUTROPHILS PERCENT AUTO 79 % (41-73); NRBC Auto 1.9 /100 WBC (0.0-0.2); Platelet Count 300 K/mm3 (150-400); RDW Coefficient Variation 17.8 % (11.7-14.2); RDW Standard Deviation 54.8 fL (35.1-46.3); Red Blood Cell Count 2.98 M/mm3 (4.30-5.90); White Blood Cell Count 10.69 K/mm3 (4.00-11.30)
[2022-09-24 05:35] LABS: Albumin, Blood 2.5 g/dL (3.4-5.0); Albumin/Globulin Ratio 0.6 (0.8-1.8); Bilirubin, Total 1.2 mg/dL (0.1-1.0); Bun/Creatinine Ratio 26.4 (12.0-20.0); Calcium, Blood 7.3 mg/dL (8.5-10.1); Creatinine, Blood 3.75 mg/dL (0.60-1.20); Magnesium, Blood 2.8 mg/dL (1.6-2.4); Potassium, Blood 3.6 mmol/L (3.5-5.5); Total Protein, Blood 6.5 g/dL (6.4-8.2)
--- NOTE | 2022-09-24 07:42 | NUR ---
pt laying on his side in bed, states he didn't really have a good night, can't define anything wrong, a/ox3, cooperative with care, follows commands well, denies pain/c.p., lungs are clear in upper swift, dim in bases, resp even and unlabored, no cough noted, hrr, tele in place running sr per monitor, see strip, no edema noted, ppp+1, cap refill <3sec, vs stable, afebrile, iv site is clear and patent, btx4, abd flat soft nontender, voids without diff, skin c/w/d, maew, declan, call light in reach.
[2022-09-24 14:41] LABS: Source, Urine Clean Catch
[2022-09-24 14:49] LABS: Bilirubin, Urine Neg (Neg); Blood, Urine Neg (Neg); Glucose Qualitative, Urine Neg (Neg); Ketones, Urine Neg (Neg); Leukocyte Esterase, Urine Neg (Neg); Nitrite, Urine Neg (Neg); Protein, Urine 2+ (Neg); Urobilinogen, Urine NORM (Normal)
--- NOTE | 2022-09-24 14:49 | NUR ---
bladder scan was done about 15mins post void, residule was 203mls. pt moans and moves around in bed alot. no further changes. call light in reach.
[2022-09-24 14:57] LABS: Appearance, Urine Clear (Clear); Color, Urine Pale Yellow (P-Yellow)
[2022-09-24 14:58] LABS: Bacteria Not Seen /hpf; Red Blood Cells, Urine 0-2 /hpf (0-2); Squamous Epithelial Cells Not Seen /hpf (Few); White Blood Cells, Urine 0-2 /hpf (0-5)
[2022-09-24 15:32] LABS: Eosinophils-Raw #,Urine 0; White Blood Cells Urine 0-2 /hpf (0-5)
--- NOTE | 2022-09-24 18:06 | NUR ---
pt continues to call out, but is polite when enter his room, no acute changes this shift. call light in reach.
[2022-09-25 06:53] LABS: Albumin, Blood 2.3 g/dL (3.4-5.0); Albumin/Globulin Ratio 0.6 (0.8-1.8); Bilirubin, Total 0.8 mg/dL (0.1-1.0); Bun/Creatinine Ratio 28.6 (12.0-20.0); Calcium, Blood 7.5 mg/dL (8.5-10.1); Creatinine, Blood 3.5 mg/dL (0.60-1.20); Globulin, Blood 3.8 g/dL (2.2-4.0); Potassium, Blood 3.7 mmol/L (3.5-5.5); Total Protein, Blood 6.1 g/dL (6.4-8.2)
--- NOTE | 2022-09-25 08:00 | NUR ---
pt laying in bed yelling out, cussing, then difts off to sleep for a bit, very restless, agitated, pulling off tele, does respond to staff, but is more agitated than yesterday, lungs are clear dim in bases, resp even and unlabored, no cough noted, on r/a, hrr tele in place running sr per monitor, see strip, no edema noted, piv to rfa site is clear and patent, btx4, abd flat soft nontender, voids via urinal, but tends to spill, skin c/w/d, maew, declan, call light in reach.
--- NOTE | 2022-09-25 18:22 | NUR ---
pt has been agitated and yelling out all day, isn't as directable as yesterday, no acute changes this shift. call light in reach.
--- NOTE | 2022-09-26 04:06 | NUR ---
SHIFT SUMMARY PT YELLING OUT, CURSING, REFUSING CARE. PT VERY RESTLESS, ANXIOUS, MOANING OUT. PAGED MD COMPOSER TEACHING ARTIST TWICE REGARDING SYMPTOMS. NEW ORDER FOR X1 DOSE 50MG SEROQUEL AT 2200 THAT WAS EFFECTIVE, PT SLEPT FOR 3 HOURS. PT BECAME MORE IRRITABLE/ANXIOUS/YELLING OUT. NEW ORDER FOR ATARAX Q6 HOURS. ADMINISTERED ONE DOSE WITH SOME RELEIF IN ANXIETY. PT VERY SENSISITIVE ALL OVER BODY WITH EVEN LIGHT TOUCH. PT NOT ENGAGING IN CONVERSATION, AWNSERS YES/ NO QUESTIONS. REFUSING VITALS, MEDICATIONS, LINEN CHANGE. WILL CONTINUE TO MONITOR.
[2022-09-26 08:31] LABS: Hematocrit 27.6 % (37.0-53.0); Mean Corpuscular HGB 27.9 pg (26.0-34.0); Mean Corpuscular HGB Conc 32.6 g/dL (31.5-36.5); Mean Corpuscular Volume 85 fL (80-100); Mean Platelet Volume 10.3 fL (9.1-12.4); NRBC ABSOLUTE 0.02 K/mm3 (0.00-0.02); NRBC Auto 0.1 /100 WBC (0.0-0.2); Platelet Count 279 K/mm3 (150-400); RDW Coefficient Variation 18.2 % (11.7-14.2); RDW Standard Deviation 56.8 fL (35.1-46.3); Red Blood Cell Count 3.23 M/mm3 (4.30-5.90); White Blood Cell Count 13.92 K/mm3 (4.00-11.30)
[2022-09-26 08:48] LABS: Bun/Creatinine Ratio 27.5 (12.0-20.0); Calcium, Blood 8.2 mg/dL (8.5-10.1); Creatinine, Blood 3.35 mg/dL (0.60-1.20); Magnesium, Blood 2.4 mg/dL (1.6-2.4); Potassium, Blood 3.9 mmol/L (3.5-5.5)
[2022-09-26 14:54] LABS: Bun/Creatinine Ratio 28.4 (12.0-20.0); Calcium, Blood 8.3 mg/dL (8.5-10.1); Creatinine, Blood 3.45 mg/dL (0.60-1.20); Potassium, Blood 4.1 mmol/L (3.5-5.5)
--- NOTE | 2022-09-26 18:38 | NUR ---
SHIFT SUMMARY PT ALERT TO SELF AND QUITE AGITATED AT TIMES. TREATED PER EMR FOR PAIN/ANXIETY RELATED TO METH WITHDRAWAL. PT SLEEPING ON AND OFF THIS SHIFT. WHEN PT IS AWAKE HE OFTEN CALLS YELLS OUT. NO CHANGE IN MENTATION THIS SHIFT.
--- NOTE | 2022-09-27 03:43 | NUR ---
SHIFT SUMMARY NO OVERNIGHT EVENTS. PT APPEARED MORE AWAKE AND ENGAGING IN CONVERSATION AT SHIFT START. PT STILL CONTINUOUSLY YELLING OUT, CURSING, AND MOANING. ADMINISTERED PRN ATARAX WITH NO EFFECTIVENESS. ADMINSITERED PRN SEROQUEL THAT WAS EFFECTIVE AND PT SLEEP MOST OF SHIFT BETWEEN [phone]. WILL CONTINUE TO MONITOR.
[2022-09-27 04:08] LABS: COMPLEMENT C3, SERUM 84 mg/dL (82-167); COMPLEMENT C4, SERUM 8 mg/dL (12-38)
[2022-09-27 06:05] LABS: BASOPHILS ABSOLUTE AUTO 0.05 K/mm3 (0.00-0.23); BASOPHILS PERCENT AUTO 1 % (0-2); EOSINOPHILS ABSOLUTE AUTO 0.02 K/mm3 (0.00-0.68); EOSINOPHILS PERCENT AUTO 0 % (0-6); Hematocrit 25.5 % (37.0-53.0); Hemoglobin 8.3 g/dL (13.5-17.5); IMMATURE GRAN ABSOLUTE AUTO 0.08 K/mm3 (0.00-0.10); IMMATURE GRAN PERCENT AUTO 1 % (0-1); LYMPHOCYTES ABSOLUTE AUTO 0.38 K/mm3 (0.84-5.20); LYMPHOCYTES PERCENT AUTO 5 % (21-46); MONOCYTES ABSOLUTE AUTO 1.11 K/mm3 (0.16-1.47); MONOCYTES PERCENT AUTO 15 % (4-13); Mean Corpuscular HGB 27.8 pg (26.0-34.0); Mean Corpuscular HGB Conc 32.5 g/dL (31.5-36.5); Mean Corpuscular Volume 85 fL (80-100); Mean Platelet Volume 9.2 fL (9.1-12.4); NEUTROPHILS ABSOLUTE AUTO 5.85 K/mm3 (1.96-9.15); NEUTROPHILS PERCENT AUTO 78 % (41-73); Platelet Count 248 K/mm3 (150-400); RDW Coefficient Variation 18.3 % (11.7-14.2); RDW Standard Deviation 56.4 fL (35.1-46.3); Red Blood Cell Count 2.99 M/mm3 (4.30-5.90); White Blood Cell Count 7.49 K/mm3 (4.00-11.30)
[2022-09-27 06:24] LABS: Albumin, Blood 2.2 g/dL (3.4-5.0); Albumin/Globulin Ratio 0.5 (0.8-1.8); Bun/Creatinine Ratio 24.2 (12.0-20.0); Calcium, Blood 8.1 mg/dL (8.5-10.1); Creatinine, Blood 3.26 mg/dL (0.60-1.20); Globulin, Blood 4.3 g/dL (2.2-4.0); Potassium, Blood 3.9 mmol/L (3.5-5.5); Total Protein, Blood 6.5 g/dL (6.4-8.2)
[2022-09-27 13:10] LABS: A/G RATIO 0.7 (0.7-1.7); ALBUMIN 2.5 g/dL (2.9-4.4); ALPHA-1-GLOBULIN 0.3 g/dL (0.0-0.4); ALPHA-2-GLOBULIN 0.6 g/dL (0.4-1.0); BETA GLOBULIN 0.9 g/dL (0.7-1.3); GAMMA GLOBULIN 1.6 g/dL (0.4-1.8); GLOBULIN, TOTAL 3.4 g/dL (2.2-3.9); M-SPIKE Not Observed g/dL (Not Observed); PROTEIN, TOTAL, SERUM 5.9 g/dL (6.0-8.5)
--- NOTE | 2022-09-27 18:34 | NUR ---
SHIFT SUMMARY: PT A&0 X3/4, PLEASANT AND ANXIOUS. PT WAS AGITATED AND STRESSED AT THE BEGINNING OF THE SHIFT. PT MEDICATED PER EMAR PROTOCOL FOR AGITATION. PT EVALUATED BY PT/OT, PT UP IN CHAIR FOR LUNCH. PT IN BED WITH CALL LIGHT WITHIN REACH.
--- NOTE | 2022-09-28 05:05 | NUR ---
SHIFT SUMMARY NO OVERNGIHT EVENTS. PT VERY IRRITABLE/AGGREVATED, YELLING OUT BETWEEN [phone], ADMINISTERED PRN ATARAX AND SEROQUEL WITH MINIMAL EFFECT. PT FINALLY FELL ASLEEP BUT RESTLESS WHEN AWAKE. PT USING URINAL, INCONTINENT OF BOWEL THIS SHIFT. BED ALARM ON. WILL CONTINUE TO MONITOR.
[2022-09-28 06:16] LABS: BASOPHILS ABSOLUTE AUTO 0.05 K/mm3 (0.00-0.23); BASOPHILS PERCENT AUTO 0 % (0-2); EOSINOPHILS ABSOLUTE AUTO 0.07 K/mm3 (0.00-0.68); EOSINOPHILS PERCENT AUTO 1 % (0-6); Hematocrit 28.6 % (37.0-53.0); Hemoglobin 9.2 g/dL (13.5-17.5); IMMATURE GRAN PERCENT AUTO 1 % (0-1); LYMPHOCYTES ABSOLUTE AUTO 0.39 K/mm3 (0.84-5.20); LYMPHOCYTES PERCENT AUTO 3 % (21-46); MONOCYTES PERCENT AUTO 10 % (4-13); Mean Corpuscular HGB 27.5 pg (26.0-34.0); Mean Corpuscular HGB Conc 32.2 g/dL (31.5-36.5); Mean Corpuscular Volume 86 fL (80-100); Mean Platelet Volume 9.7 fL (9.1-12.4); NEUTROPHILS ABSOLUTE AUTO 10.14 K/mm3 (1.96-9.15); NEUTROPHILS PERCENT AUTO 85 % (41-73); Platelet Count 278 K/mm3 (150-400); RDW Coefficient Variation 18.5 % (11.7-14.2); RDW Standard Deviation 57.9 fL (35.1-46.3); Red Blood Cell Count 3.34 M/mm3 (4.30-5.90); White Blood Cell Count 11.95 K/mm3 (4.00-11.30)
[2022-09-28 06:42] LABS: Albumin, Blood 2.3 g/dL (3.4-5.0); Albumin/Globulin Ratio 0.5 (0.8-1.8); Bilirubin, Total 0.8 mg/dL (0.1-1.0); Bun/Creatinine Ratio 29.5 (12.0-20.0); Calcium, Blood 8.2 mg/dL (8.5-10.1); Creatinine, Blood 3.25 mg/dL (0.60-1.20); Globulin, Blood 4.7 g/dL (2.2-4.0); Phosphorus, Blood 2.8 mg/dL (2.5-4.9); Potassium, Blood 4.1 mmol/L (3.5-5.5)
--- NOTE | 2022-09-28 18:28 | NUR ---
PATIENT HAS CONTINUED TO SCREAM AND YELL OUT, MEDICATED WITH ATARAX, SEROQUEL AND BENADRYL. CUSSING AND THROWING WATER, URGENCY WITH VOIDING PER BSU, UNCONSOLABLE, PAIN WTH ANY MOVEMENT OR TOUCH. HOME PLACEMENT SITUATIONS MANAGER PHILOSOPHY AND DR ARREGUIN, FANNY ON, CALL LIGHT WITH IN REACH, PATIET DOES NOT CALL JUST THROWS THINGS HE CAN GRAB ON THE TABLE. DENIES PAIN OR NV, UNABLE TO GENERALIZE OR LOCALIZE WHERE THE PAIN IS OR WHAT HE IS FEELING. WILL RELAY TO PM RN
--- NOTE | 2022-09-28 19:19 | NUR ---
RECEIVED REPORT FROM JESUS RN. PT LYING ON BACK RESTING WITH EYES CLOSED. RESP EVEN ON RA. WILL PROVIDE CARE T/O SHIFT. CALL LT IN REACH.
--- NOTE | 2022-09-28 22:42 | NUR ---
PT CONTINUES TO MOANED LOUDLY. RESTING INTERMITTENTLY. TOOK MED WITH WATER. ON RA. DENIED PAIN AND SOB. WILL CONTINUE TO PROVIDE CARE. BED ALARM ON. CALL LT IN REACH.
--- NOTE | 2022-09-29 | NUR ---
PT CONTINUES TO MOAN LOUDLY. NO NEEDS AT THIS TIME. BED ALARM ON. CALL LT IN REACH.
--- NOTE | 2022-09-29 00:15 | NUR ---
PT TRYING TO THROW LEGS OVER SIDE OF BED PER TRANSMISSION TECHNICIAN. BED ALARM ON. CALL LT IN REACH.
--- NOTE | 2022-09-29 01:09 | NUR ---
PT GIVEN 50MG SEROQUEL PO FOR INCREASING AGITATION. CALL LT IN REACH.
--- NOTE | 2022-09-29 01:32 | NUR ---
PT RESTING QUIETLY AT THIS TIME. BED ALARM ON. CALL LT IN REACH.
--- NOTE | 2022-09-29 02:00 | NUR ---
PT CONTINUES TO REST QUIETLY. CALL LT IN REACH.
--- NOTE | 2022-09-29 04:05 | NUR ---
PT INTERMITTENTLY MOANS AND CALLS OUT THEN RESTS A WHILE. NO NEEDS EXPRESSED OTHER THAN YELLING. WILL CONTINUE TO PROVIDE CARE. CALL LT IN REACH. BED ALARM ON.
--- NOTE | 2022-09-29 04:26 | NUR ---
SHIFT SUMMARY: MEDICATED PT WITH PRN SEROQUEL FOR AGITATION AND CALLING OUT X 2. PT LESS AGITATED WITH THE SEROQUEL. PT DOES NOT STATE WHY HE YELLS AND CALLS OUT. TAKES HIS MEDS WITH WATER. ON RA. NO ACUTE CHANGES. PLAN IS PLACEMENT OR HOME WITH HOME HEALTH TO FOLLOW. WILL CONTINUE TO PROVIDE CARE UNTIL SHIFT REPORT TO ONCOMING NURSE.
[2022-09-29 05:15] LABS: BASOPHILS ABSOLUTE AUTO 0.05 K/mm3 (0.00-0.23); BASOPHILS PERCENT AUTO 0 % (0-2); EOSINOPHILS ABSOLUTE AUTO 0.03 K/mm3 (0.00-0.68); EOSINOPHILS PERCENT AUTO 0 % (0-6); Hemoglobin 8.5 g/dL (13.5-17.5); IMMATURE GRAN ABSOLUTE AUTO 0.15 K/mm3 (0.00-0.10); IMMATURE GRAN PERCENT AUTO 1 % (0-1); LYMPHOCYTES ABSOLUTE AUTO 0.48 K/mm3 (0.84-5.20); LYMPHOCYTES PERCENT AUTO 3 % (21-46); MONOCYTES ABSOLUTE AUTO 1.36 K/mm3 (0.16-1.47); MONOCYTES PERCENT AUTO 9 % (4-13); Mean Corpuscular HGB 27.1 pg (26.0-34.0); Mean Corpuscular HGB Conc 32.7 g/dL (31.5-36.5); Mean Corpuscular Volume 83 fL (80-100); Mean Platelet Volume 10.1 fL (9.1-12.4); NEUTROPHILS ABSOLUTE AUTO 13.57 K/mm3 (1.96-9.15); NEUTROPHILS PERCENT AUTO 87 % (41-73); Platelet Count 238 K/mm3 (150-400); RDW Coefficient Variation 18.7 % (11.7-14.2); RDW Standard Deviation 56.5 fL (35.1-46.3); Red Blood Cell Count 3.14 M/mm3 (4.30-5.90); White Blood Cell Count 15.64 K/mm3 (4.00-11.30)
[2022-09-29 05:40] LABS: Albumin, Blood 2.1 g/dL (3.4-5.0); Albumin/Globulin Ratio 0.5 (0.8-1.8); Bun/Creatinine Ratio 25.9 (12.0-20.0); Calcium, Blood 8.4 mg/dL (8.5-10.1); Creatinine, Blood 3.43 mg/dL (0.60-1.20); Globulin, Blood 4.5 g/dL (2.2-4.0); Potassium, Blood 3.2 mmol/L (3.5-5.5); Total Protein, Blood 6.6 g/dL (6.4-8.2)
[2022-09-29 10:55] LABS: Source, Urine Clean Catch
[2022-09-29 11:03] LABS: Appearance, Urine Clear (Clear); Bilirubin, Urine Neg (Neg); Blood, Urine 2+ (Neg); Color, Urine Yellow (P-Yellow); Glucose Qualitative, Urine Neg (Neg); Ketones, Urine Neg (Neg); Leukocyte Esterase, Urine Neg (Neg); Nitrite, Urine Neg (Neg); Protein, Urine 3+ (Neg); Urobilinogen, Urine NORM (Normal)
[2022-09-29 11:27] LABS: Bacteria Few /hpf; Red Blood Cells, Urine 0-2 /hpf (0-2); Squamous Epithelial Cells Few /hpf (Few); White Blood Cells, Urine 0-2 /hpf (0-5)
[2022-09-29 11:28] LABS: Granular Casts 0-2 /lpf (0); Mucus Light (0-Heavy)
[2022-09-29 11:30] LABS: U Amphetamine Screen Not Detected; U Barbituate Screen Not Detected; U Benzodiazapine Screen Not Detected; U Buprenorphine Screen Not Detected; U Cannabinoids Screen Not Detected; U Cocaine Screen Not Detected; U Methadone Screen Not Detected; U Methamphetamine Screen Not Detected; U Opiates Screen Not Detected; U Oxycodone Screen Not Detected; U Phencyclidine Screen Not Detected; U Propoxyphene Screen Not Detected
--- NOTE | 2022-09-29 17:08 | NUR ---
SHIFT SUMMARY PATIENT IS ALERT AND ORIENTED. PATIENT HAS HAD NO ACUTE EVENTS THIS SHIFT. VITAL SIGNS REVIEWED. PATIENT HAS HAD NO COMPLAINTS OF NAUSEA, SOB, VOMITTING OR PAIN THIS SHIFT. PATIENT STILL HAS AGGITATION. PATIENT HAS BEEN GETTING POTASSIUM IV MOST OF SHIFT WITH NO ISSUE. BED IN LOCKED AND LOWEST POSITION. CALL LIGHT IN PLACE. WILL MONITOR UNTIL SHIFT CHANGE.
--- NOTE | 2022-09-30 02:08 | NUR ---
BLOOD CULTURES RETURNED GRAM POSITIVE COCCI IN CLUSTER. INFORMED
[2022-09-30 04:58] LABS: Hematocrit 26.6 % (37.0-53.0); Hemoglobin 8.7 g/dL (13.5-17.5); Mean Corpuscular HGB 27.4 pg (26.0-34.0); Mean Corpuscular HGB Conc 32.7 g/dL (31.5-36.5); Mean Corpuscular Volume 84 fL (80-100); Mean Platelet Volume 10.8 fL (9.1-12.4); Platelet Count 227 K/mm3 (150-400); RDW Coefficient Variation 18.9 % (11.7-14.2); RDW Standard Deviation 57.6 fL (35.1-46.3); Red Blood Cell Count 3.18 M/mm3 (4.30-5.90); White Blood Cell Count 19.31 K/mm3 (4.00-11.30)
[2022-09-30 05:15] LABS: Albumin, Blood 2.1 g/dL (3.4-5.0); Anion Gap 10 mmol/L (6-16); Blood Urea Nitrogen 99 mg/dL (8-24); CO2, Blood 26 mmol/L (21-32); Calcium, Blood 8.3 mg/dL (8.5-10.1); Chloride, Blood 100 mmol/L (98-108); Creatinine, Blood 3.41 mg/dL (0.60-1.20); Glomerular Filtration Rate 19 (60-); Glucose, Blood 143 mg/dL (70-99); Phosphorus, Blood 2.9 mg/dL (2.5-4.9); Potassium, Blood 3.3 mmol/L (3.5-5.5); Sodium, Blood 136 mmol/L (136-145)
[2022-09-30 05:43] LABS: BAND PERCENT MAN 19 % (0-8); BASOPHILS PERCENT MAN 0 % (0-2); EOSINOPHILS PERCENT MAN 0 % (0-6); LYMPHOCYTES ABSOLUTE MAN 0.38 K/mm3 (0.84-5.20); LYMPHOCYTES PERCENT MAN 2 % (21-46); MONOCYTES ABSOLUTE MAN 0.57 K/mm3 (0.16-1.47); MONOCYTES PERCENT MAN 3 % (4-13); NEUTROPHILS ABSOLUTE MAN 18.34 K/mm3 (1.96-9.15); SEG NEUTROPHILS PERCENT MAN 76 % (41-73); TOTAL CELLS COUNTED 100
--- NOTE | 2022-09-30 07:27 | NUR ---
NIGHTSHIFT SUMMARY KALYAN SPENT MOST OF THE NIGHT MOANING OR YELLING VERY LOUDLY. HE WOULD SCREAM AND SWEAR EACH TIME STAFF TRIED TO REPOSITION AND/OR CHANGE HIM. HE WAS COOPERATIVE IN TAKING MEDS. SEROQUEL WAS GIVEN SEVERAL TIMES WITH NO VISIBLE EFFECT, THEN ZYPREXA 10MG WAS GIVEN IM ALSO WITHOUT ANY EFFECT. HE DID NOT END UP SLEEPING AT ALL. ELIANE HAS A RAVENOUS THIRST DESPITE THIS NURSES ATTEMPT AT EXPLAINING FLUID OVERLOAD AND CHF. PATIENT REMAINS ON ROOM AIR HE ALSO REFUSED LOVENOX.
--- NOTE | 2022-09-30 15:11 | NUR ---
NURSE NOTE PATIENT WAS GIVEN HALDOL FOR AGITATION. PATIENT HAS BEEN MOVED TO ROOM 313 FOR SCU BED NOT AVAILABLE AND FOR PATIENT BEING DISRUPTIVE.
--- NOTE | 2022-09-30 16:29 | NUR ---
SHIFT SUMMARY PATIENT HAS BEEN ALERT BUT CONFUSED. PATIENT HAS BEEN DECLINING AND PATIENT HAS BEEN EXTREMELY AGITATED THIS SHIFT. SEE PRIOR NOTE. PATIENT HAD A NEW IV PLACED THIS SHIFT. PATIENT HAS BEEN RECEIVING POTASSIUM MOST OF SHIFT, PATIENT CANNOT HANDLE FULL RATE OF POTASSIUM. VITAL SIGNS REVIEWED. BED IN LOCKED AND LOWEST POSITION. WILL MONITOR UNTIL SHIFT CHANGE.
[2022-09-30 18:10] LABS: 25-HYDROXY, VITAMIN D 11 ng/mL (.); 25-HYDROXY, VITAMIN D-2 <1.0 ng/mL (.); 25-HYDROXY, VITAMIN D-3 11 ng/mL (.)
[2022-10-01 05:46] LABS: Hematocrit 25.5 % (37.0-53.0); Hemoglobin 8.3 g/dL (13.5-17.5); Mean Corpuscular HGB 26.9 pg (26.0-34.0); Mean Corpuscular HGB Conc 32.5 g/dL (31.5-36.5); Mean Corpuscular Volume 83 fL (80-100); Mean Platelet Volume 10.7 fL (9.1-12.4); Platelet Count 194 K/mm3 (150-400); RDW Coefficient Variation 18.8 % (11.7-14.2); RDW Standard Deviation 56.8 fL (35.1-46.3); Red Blood Cell Count 3.09 M/mm3 (4.30-5.90); White Blood Cell Count 18.71 K/mm3 (4.00-11.30)
[2022-10-01 06:17] LABS: Albumin, Blood 1.9 g/dL (3.4-5.0); Albumin/Globulin Ratio 0.4 (0.8-1.8); Bilirubin, Total 0.9 mg/dL (0.1-1.0); Bun/Creatinine Ratio 29.7 (12.0-20.0); Calcium, Blood 8.4 mg/dL (8.5-10.1); Creatinine, Blood 3.33 mg/dL (0.60-1.20); Globulin, Blood 4.3 g/dL (2.2-4.0); Potassium, Blood 3.8 mmol/L (3.5-5.5); Total Protein, Blood 6.2 g/dL (6.4-8.2)
--- NOTE | 2022-10-01 06:19 | NUR ---
SHIFT SUMMARY; NO ACUTE CHANGES OVERNIGHT. PT CONTINUES TO HAVE LOUD OUTBURST, WELL PT IS AGITATED. MEDICATED WITH SEROQUEL, PT SLEPT SOUNDLY FROM 0200-CURRENT. PT DENIES ANY SOB, PT COMPLAINS OF PAIN RELATED TO SHIVERING FROM BEING COLD. PT WAS PROVIDED WITH MULTIPLE WARM BLANKETS AND NO LONGER COMPLAINS OF PAIN AND OR BEING COLD. PT WAS PLEASANT WITH STAFF THIS PM. PT CURRENTLY RESTING IN BED WITH THE BED IN THE LOWEST POSITION AND THE CALL LIGHT AT BEDSIDE.
[2022-10-01 10:18] LABS: Vancomycin, Random <0.8 ug/mL
--- NOTE | 2022-10-01 17:50 | NUR ---
SHIFT SUMMARY NO ACUTE CHANGES THIS SHIFT. PT HAS DIFFICULTY COMMUNICATING HIS NEEDS BUT WILL INSTEAD MOAN AND CRY OUT. WHEN ASKED WHAT IS WRONG, HE DOESN'T VERBALLY CONFIRM ANY SPECIFIC ISSUE. HE HAS BEEN SLEEPING OFF AND ON THE ENTIRE SHIFT. HE C/O PAIN EARLIER IN THE SHIFT AND WAS MEDICATED PER THE EMAR. STILL AWAITING INFORMATION ABOUT PLACEMENT. WILL REPORT TO ONCOMING NURSE.
[2022-10-02 06:04] LABS: BASOPHILS ABSOLUTE AUTO 0.03 K/mm3 (0.00-0.23); BASOPHILS PERCENT AUTO 0 % (0-2); EOSINOPHILS ABSOLUTE AUTO 0.37 K/mm3 (0.00-0.68); EOSINOPHILS PERCENT AUTO 3 % (0-6); Hematocrit 23.4 % (37.0-53.0); Hemoglobin 7.8 g/dL (13.5-17.5); IMMATURE GRAN ABSOLUTE AUTO 0.14 K/mm3 (0.00-0.10); IMMATURE GRAN PERCENT AUTO 1 % (0-1); LYMPHOCYTES ABSOLUTE AUTO 0.49 K/mm3 (0.84-5.20); LYMPHOCYTES PERCENT AUTO 4 % (21-46); MONOCYTES ABSOLUTE AUTO 0.78 K/mm3 (0.16-1.47); MONOCYTES PERCENT AUTO 6 % (4-13); Mean Corpuscular HGB 27.3 pg (26.0-34.0); Mean Corpuscular HGB Conc 33.3 g/dL (31.5-36.5); Mean Corpuscular Volume 82 fL (80-100); NEUTROPHILS ABSOLUTE AUTO 12.18 K/mm3 (1.96-9.15); NEUTROPHILS PERCENT AUTO 87 % (41-73); Platelet Count 188 K/mm3 (150-400); RDW Coefficient Variation 18.9 % (11.7-14.2); RDW Standard Deviation 56.7 fL (35.1-46.3); Red Blood Cell Count 2.86 M/mm3 (4.30-5.90); White Blood Cell Count 13.99 K/mm3 (4.00-11.30)
[2022-10-02 06:35] LABS: Albumin, Blood 1.8 g/dL (3.4-5.0); Anion Gap 10 mmol/L (6-16); Blood Urea Nitrogen 100 mg/dL (8-24); Bun/Creatinine Ratio 29.9 (12.0-20.0); CO2, Blood 23 mmol/L (21-32); Calcium, Blood 8.2 mg/dL (8.5-10.1); Chloride, Blood 102 mmol/L (98-108); Creatinine, Blood 3.34 mg/dL (0.60-1.20); Glomerular Filtration Rate 20 (60-); Glucose, Blood 125 mg/dL (70-99); Phosphorus, Blood 2.9 mg/dL (2.5-4.9); Potassium, Blood 3.6 mmol/L (3.5-5.5); Sodium, Blood 135 mmol/L (136-145)
--- NOTE | 2022-10-02 06:39 | NUR ---
A/OX1-2; SELF ONLY AT TIME OF ASSESSMENT. ILLOGICAL AND ANXIOUS AT TIMES. CALLS OUT LOUDLY IF USING THE URINAL WHEN IT'S COLD. NOT OOB THIS SHIFT; 1X ASSIST PER REPORT. TOOK PILLS WELL WHOLE. AWAITING PLACEMENT. CALL LIGHT IN REACH; ENCOURAGED TO MAKE NEEDS KNOWN. BED ALARM SET.
--- NOTE | 2022-10-02 17:59 | NUR ---
SHIFT SUMMARY PT IS AOX3-4 THIS SHIFT, IMPROVING QUITE A BIT FROM YESTERDAY DAY SHIFT. HE HAS BEEN ABLE TO HOLD CONVERSATIONS AND MAKE HIS NEEDS KNOWNS. HE GOT INTO THE SHOWER TODAY AND HIS LINENS WERE CHANGED. HE HAS BEEN EATING ALMOST ALL OF HIS MEALS TODAY, STATING HE IS HUNGRY. HE HAS C/O SHOULD PAIN AND WAS MEDICATED PER THE EMAR. HE ALSO RECEIVED AN X-RAY TODAY OF HIS LEFT SHOULDER, RESULTS ARE PENDING. WILL REPORT TO ONCOMING NURSE.
[2022-10-03 05:39] LABS: BASOPHILS ABSOLUTE AUTO 0.05 K/mm3 (0.00-0.23); BASOPHILS PERCENT AUTO 0 % (0-2); EOSINOPHILS ABSOLUTE AUTO 0.46 K/mm3 (0.00-0.68); EOSINOPHILS PERCENT AUTO 4 % (0-6); Hematocrit 25.5 % (37.0-53.0); Hemoglobin 8.3 g/dL (13.5-17.5); IMMATURE GRAN ABSOLUTE AUTO 0.16 K/mm3 (0.00-0.10); IMMATURE GRAN PERCENT AUTO 1 % (0-1); LYMPHOCYTES ABSOLUTE AUTO 0.64 K/mm3 (0.84-5.20); LYMPHOCYTES PERCENT AUTO 5 % (21-46); MONOCYTES ABSOLUTE AUTO 0.88 K/mm3 (0.16-1.47); MONOCYTES PERCENT AUTO 7 % (4-13); Mean Corpuscular HGB 27.1 pg (26.0-34.0); Mean Corpuscular HGB Conc 32.5 g/dL (31.5-36.5); Mean Corpuscular Volume 83 fL (80-100); Mean Platelet Volume 11.7 fL (9.1-12.4); NEUTROPHILS ABSOLUTE AUTO 10.33 K/mm3 (1.96-9.15); NEUTROPHILS PERCENT AUTO 83 % (41-73); Platelet Count 226 K/mm3 (150-400); RDW Coefficient Variation 19.7 % (11.7-14.2); RDW Standard Deviation 58.7 fL (35.1-46.3); Red Blood Cell Count 3.06 M/mm3 (4.30-5.90); White Blood Cell Count 12.52 K/mm3 (4.00-11.30)
--- NOTE | 2022-10-03 06:00 | NUR ---
A/OX3-4; PLEASANT, INTERACTIVE AND COOPERATIVE THIS SHIFT. 1X ASSIST TO AMBULATE/ IND WITH URINAL IN BED. PRN TYLENOL AND HEAT PAD FOR C/O R SHOULDER PAIN. SPO2 95 TO 98% ON 2L NC AND LUNGS CTA, SOB WITH EXERTION. SOFT BP AT SHIFT START (80's/60's), HTN AT MIDNIGHT SPOT CHECK (141/118) WITH HR 130 (TYPICALLY HR IS 80- 90's T/O SHIFT). BP 90's/70's AT END OF SHIFT. UNABLE TO COLLECT STOOL SAMPLE THIS SHIFT - NO BM USING CALL LIGHT APPROPRIATELY; ENCOURAGED TO MAKE NEEDS KNOWN. SLEEP PROMOTED. BED ALARM SET.
[2022-10-03 06:10] LABS: Albumin, Blood 1.8 g/dL (3.4-5.0); Albumin/Globulin Ratio 0.4 (0.8-1.8); Bilirubin, Total 0.6 mg/dL (0.1-1.0); Bun/Creatinine Ratio 35.7 (12.0-20.0); Calcium, Blood 8.5 mg/dL (8.5-10.1); Creatinine, Blood 3.25 mg/dL (0.60-1.20); Globulin, Blood 4.3 g/dL (2.2-4.0); Phosphorus, Blood 2.6 mg/dL (2.5-4.9); Potassium, Blood 3.9 mmol/L (3.5-5.5); Total Protein, Blood 6.1 g/dL (6.4-8.2)
--- NOTE | 2022-10-03 19:28 | NUR ---
SHIFT SUMMARY: PT A/O X 3, ONE ASSIST TO CHAIR. PT PLEASANT AND COOPERATIVE WITH CARE NEEDS. PT REPORTED PAIN TO R SHOULDER. PAIN MANAGED WITH CURRENT PAIN MEDICATIONS. PT DOES HAVE REDUCED ROM IN ARM AND DIFFICULTY COMPLETING ADL'S DUE TO ROM ISSUES. PT HAD NO OTHER COMPLAINTS OR CONCERNS THROUGHOUT THE DAY. UNABLE TO GET STOOL GUAIC SAMPLE DUE TO NO BM. STOOL SOFTENERS GIVEN PER ORDER.
--- NOTE | 2022-10-04 06:52 | NUR ---
A/OX2; SELF AND PLACE, ANXIOUS AND MORE IMPULSIVE THIS SHIFT. PRN SEROQUEL AND PRN HALDOL GIVEN FOR AGITATION THIS SHIFT. PRN NORCO AND HEAT PAD FOR C/O 10/10 R SHOULDER PAIN. ALSO C/O PAIN WITH URINATION (YELLS OUT) AND IS VOIDING SMALLER AMOUNTS AND MORE FREQUENTLY. SPO2 > 92% ON 2L NC. SOB WITH EXERTION. MOIST COUGH IS MORE FREQUENT COMPARED TO PRIOR SHIFTS. HIGH ASPIRATION RISK AT THIS TIME - PATIENT CHOKED ON THIN LIQUIDS THIS SHIFT AND WAS UNABLE TO APPROPRIATELY USE A STRAW, NOT SWALLOWING PILLS AND NEEDED THEM CRUSHED IN APPLESAUCE. EXHAUST MACHINE OPERATOR EVAL ORDERED. INCONTINENT WITH MULTIPLE BED CHANGES; PLACED IN ATTENDS. Q2 TURN NOW D/T NON-BLANCHABLE REDNESS ON COCCYX. UNABLE TO COLLECT STOOL SAMPLE THIS SHIFT - NO BM NOT USING CALL LIGHT THIS SHIFT, JUST YELLIING OUT; ENCOURAGED TO MAKE NEEDS KNOWN WITH CALL LIGHT. SLEEP PROMOTED. BED ALARM SET.
[2022-10-04 07:04] LABS: BASOPHILS ABSOLUTE AUTO 0.05 K/mm3 (0.00-0.23); BASOPHILS PERCENT AUTO 0 % (0-2); EOSINOPHILS ABSOLUTE AUTO 0.27 K/mm3 (0.00-0.68); EOSINOPHILS PERCENT AUTO 2 % (0-6); Hematocrit 26.3 % (37.0-53.0); Hemoglobin 8.7 g/dL (13.5-17.5); IMMATURE GRAN ABSOLUTE AUTO 0.22 K/mm3 (0.00-0.10); IMMATURE GRAN PERCENT AUTO 1 % (0-1); LYMPHOCYTES ABSOLUTE AUTO 0.55 K/mm3 (0.84-5.20); LYMPHOCYTES PERCENT AUTO 3 % (21-46); MONOCYTES ABSOLUTE AUTO 0.71 K/mm3 (0.16-1.47); MONOCYTES PERCENT AUTO 4 % (4-13); Mean Corpuscular HGB 27.1 pg (26.0-34.0); Mean Corpuscular HGB Conc 33.1 g/dL (31.5-36.5); Mean Corpuscular Volume 82 fL (80-100); Mean Platelet Volume 11.1 fL (9.1-12.4); NEUTROPHILS ABSOLUTE AUTO 14.24 K/mm3 (1.96-9.15); NEUTROPHILS PERCENT AUTO 89 % (41-73); NRBC ABSOLUTE 0.02 K/mm3 (0.00-0.02); NRBC Auto 0.1 /100 WBC (0.0-0.2); Platelet Count 302 K/mm3 (150-400); RDW Coefficient Variation 19.9 % (11.7-14.2); Red Blood Cell Count 3.21 M/mm3 (4.30-5.90); White Blood Cell Count 16.04 K/mm3 (4.00-11.30)
[2022-10-04 07:21] LABS: Albumin, Blood 1.9 g/dL (3.4-5.0); Albumin/Globulin Ratio 0.4 (0.8-1.8); Bilirubin, Total 0.6 mg/dL (0.1-1.0); Bun/Creatinine Ratio 36.3 (12.0-20.0); Calcium, Blood 8.7 mg/dL (8.5-10.1); Creatinine, Blood 3.28 mg/dL (0.60-1.20); Globulin, Blood 4.7 g/dL (2.2-4.0); Phosphorus, Blood 2.4 mg/dL (2.5-4.9); Potassium, Blood 4.5 mmol/L (3.5-5.5); Total Protein, Blood 6.6 g/dL (6.4-8.2)
--- NOTE | 2022-10-04 17:35 | NUR ---
SHIFT SUMMARY: PT A/O X 1 LETHARGIC AND RESPONSIVE TO PAIN STIMULI AT TIMES AND OTHER TIMES TO VERBAL STIMULI. PT CONTINUES TO REPORT PAIN TO LEFT ARM. LIDOCAINE PATCH APPLIED PER ORDER. PT DID NOT PARTICIPATE WITH PT/OT/ST TODAY. PT DID NOT HAVE A BM TODAY. NO BM REPORTED SINCE 09/28. PT NPO SINCE THIS AM. STARTED LR @ 75. PT HAS BEEN CONTINENT AND INCONTINENT. USES URINAL WHEN CONTINENT. URINE IS LIGHT YELLOW. PT BP ELEVATED THIS AM. THIS EVENING HR WAS ELEVATED AT 120. PT HAS NO SIGNS OF EDEMA, HAS EPISODES OF DYSPNEA AT TIMES WHICH APPEARS TO BE POSITIONAL. PT TX TO ROOM 347 IN SCU THIS EVENING DUE TO AGITATION. BEDSIDE REPORT GIVEN TO HILARIO HORVATH.
--- NOTE | 2022-10-04 18:21 | NUR ---
1800 ASSUMED CARE OF PT TO RM [id number] FROM [id number]. RECEIVED REPORT FROM ELADIA HORVATH. PT RESTING QUIETLY UPON ARRIVAL AND TO PRESENT. BED ALARM ON FOR SAFETY. CALL LT IN REACH. IVF'S INFUSING PER EMAR. PT NPO PER ORDERS.
[2022-10-04 20:25] LABS: PCO2 Arterial 30.9 mmHg (35-45); PO2 Arterial 302 mmHg (80-100); pH Blood Arterial 7.48 (7.35-7.45)
[2022-10-04 20:46] LABS: BASOPHILS ABSOLUTE AUTO 0.06 K/mm3 (0.00-0.23); BASOPHILS PERCENT AUTO 0 % (0-2); EOSINOPHILS ABSOLUTE AUTO 0.28 K/mm3 (0.00-0.68); EOSINOPHILS PERCENT AUTO 2 % (0-6); Hematocrit 29.4 % (37.0-53.0); Hemoglobin 9.5 g/dL (13.5-17.5); IMMATURE GRAN ABSOLUTE AUTO 0.23 K/mm3 (0.00-0.10); IMMATURE GRAN PERCENT AUTO 2 % (0-1); LYMPHOCYTES ABSOLUTE AUTO 0.38 K/mm3 (0.84-5.20); LYMPHOCYTES PERCENT AUTO 3 % (21-46); MONOCYTES ABSOLUTE AUTO 0.65 K/mm3 (0.16-1.47); MONOCYTES PERCENT AUTO 5 % (4-13); Mean Corpuscular HGB 27.3 pg (26.0-34.0); Mean Corpuscular HGB Conc 32.3 g/dL (31.5-36.5); Mean Corpuscular Volume 85 fL (80-100); Mean Platelet Volume 10.2 fL (9.1-12.4); NEUTROPHILS ABSOLUTE AUTO 11.92 K/mm3 (1.96-9.15); NEUTROPHILS PERCENT AUTO 88 % (41-73); Platelet Count 343 K/mm3 (150-400); RDW Coefficient Variation 20.6 % (11.7-14.2); RDW Standard Deviation 60.8 fL (35.1-46.3); Red Blood Cell Count 3.48 M/mm3 (4.30-5.90); White Blood Cell Count 13.52 K/mm3 (4.00-11.30)
[2022-10-04 21:14] LABS: Anion Gap 9 mmol/L (6-16); Blood Urea Nitrogen 117 mg/dL (8-24); Bun/Creatinine Ratio 34.9 (12.0-20.0); CO2, Blood 25 mmol/L (21-32); CPK Creatine Kinase 24 U/L (39-308); Calcium, Blood 8.8 mg/dL (8.5-10.1); Chloride, Blood 105 mmol/L (98-108); Creatinine, Blood 3.35 mg/dL (0.60-1.20); Glomerular Filtration Rate 20 (60-); Glucose, Blood 114 mg/dL (70-99); Phosphorus, Blood 2.7 mg/dL (2.5-4.9); Sodium, Blood 139 mmol/L (136-145)
--- NOTE | 2022-10-04 21:20 | NUR ---
CARE ASSUMPTION: ASSUMED CARE AT 2039 FOLLOWING PIPE ASSEMBLY WORKER CALL. PATIENT TRANSFERRED TO PCU FROM MED FLOOR. PER REPORT PATIENT PREVIOUSLY NSR, NOW AFIB RVR WITH HR >120S. AFEBRILE. PATIENT FINGERS AND TOES CYANOTIC. POOR O2 PLETH USING EAR PROBE, FOREHEAD SENSOR, AND NASAL PROBE. EAR PROBE MOST CONSISTENT FOR INTERMITTENT READINGS. A&O X3. PAINFUL IN L ARM AND LOWER EXTREMETIES. PATIENT IS TREMULOUS. WARM BLANKETS APPLIED TO WARM PATIENT. PATIENT HAS BEEN NPO FOR A DAY AND HAS NOT RECEIVED PO MEDS. AWAITING NEW ORDERS. BED LOW WITH ALARM SET AND CALL LIGHT IN REACH.
--- NOTE | 2022-10-04 23:45 | NUR ---
CALLED [facility]ON[facility] APROX 1750; FOUND PT W/HAVE CYANOTIC FINGERS. PULSE OX SAT WAS BETWEEN 50'S-70'S. PT C/O OF CHEST PRESSURE. RT AT BEDSIDE. CALLED RR T/ROOM 347. PT WAS FOUND T/BE AFIB W/RVR. PT XFERED T/[id number]. BEDSIDE SHIFT REPORT GIVEN TO ALEXANDRU CHAMPION. PHONE CALL T/NEXT OF KIN--ALEXA CASAS. UPDATED ON PT CONDITION AND MOVE T/PCU.
--- NOTE | 2022-10-05 06:31 | NUR ---
SHIFT SUMMARY: PATIENT A&O TO SELF AND PLACE, PAINFUL, TREMULOUS, AND OCCASIONALLY AGGRESSIVE VERBALLY AND PHYSICALLY. CONVERTED FROM AFIB TO SR/ST AT 0315. PATIENT MOVES SELF IN BED AND DOES NOT WANT ANYONE TOUCHING/MOVING HIS ARMS. 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 PATIENT FREQUENTLY REMOVES TELE LINES. INCONTINENT/CONTINENT. BED LOW WITH ALARM SET. CALL LIGHT IN REACH.
[2022-10-05 06:33] LABS: BASOPHILS ABSOLUTE AUTO 0.05 K/mm3 (0.00-0.23); BASOPHILS PERCENT AUTO 0 % (0-2); EOSINOPHILS ABSOLUTE AUTO 0.18 K/mm3 (0.00-0.68); EOSINOPHILS PERCENT AUTO 1 % (0-6); Hematocrit 25.8 % (37.0-53.0); Hemoglobin 8.4 g/dL (13.5-17.5); IMMATURE GRAN ABSOLUTE AUTO 0.19 K/mm3 (0.00-0.10); IMMATURE GRAN PERCENT AUTO 2 % (0-1); LYMPHOCYTES ABSOLUTE AUTO 0.51 K/mm3 (0.84-5.20); LYMPHOCYTES PERCENT AUTO 4 % (21-46); MONOCYTES ABSOLUTE AUTO 0.91 K/mm3 (0.16-1.47); MONOCYTES PERCENT AUTO 7 % (4-13); Mean Corpuscular HGB 27.5 pg (26.0-34.0); Mean Corpuscular HGB Conc 32.6 g/dL (31.5-36.5); Mean Corpuscular Volume 84 fL (80-100); Mean Platelet Volume 10.2 fL (9.1-12.4); NEUTROPHILS ABSOLUTE AUTO 10.77 K/mm3 (1.96-9.15); NEUTROPHILS PERCENT AUTO 86 % (41-73); Platelet Count 354 K/mm3 (150-400); RDW Coefficient Variation 20.3 % (11.7-14.2); RDW Standard Deviation 59.1 fL (35.1-46.3); Red Blood Cell Count 3.06 M/mm3 (4.30-5.90); White Blood Cell Count 12.61 K/mm3 (4.00-11.30)
[2022-10-05 06:54] LABS: Albumin, Blood 1.9 g/dL (3.4-5.0); Albumin/Globulin Ratio 0.4 (0.8-1.8); Bilirubin, Total 0.7 mg/dL (0.1-1.0); Bun/Creatinine Ratio 33.5 (12.0-20.0); Calcium, Blood 8.5 mg/dL (8.5-10.1); Creatinine, Blood 3.43 mg/dL (0.60-1.20); Globulin, Blood 4.6 g/dL (2.2-4.0); Potassium, Blood 4.9 mmol/L (3.5-5.5); Total Protein, Blood 6.5 g/dL (6.4-8.2)
--- NOTE | 2022-10-05 17:53 | NUR ---
SHIFT SUMMARY; ASSUMED CARE AT 0700. A/A/OX2-3. REPOSITIONS SELF ON GURNEY FREQUENLTY DURING SHIFT. AT TIMES CURLS UP IN POSITION, MOAN, AND DOESN'T ANSWER QUESTIONS. DIFFICULT TO ASSESS AND ALLOWS MINIMAL REPOSITIONING OR TOUCHING ARMS OR LEGS. EVALUATED BY SPEECH. OK FOR PUREE AND MEDS WITH APPLESAUCE. AT TIMES WAKES AND MAKES NEEDS KNOWN, SAYS THANK YOU. OTHER TIMES MUMBLES AND YELLS IF NURSE ASKS TO REPEAT DUE TO MUMBLING. USES URINAL AT TIMES, IN CONTINANT OF STOOL AND URINE OTHERS. JODEE CARE, LINEN CHANGE AND GOWN CHANGE PROVIDED. VSS, STATUS CHANGED TO MEDICAL. NO ACUTE MEDICAL CHANGES, WILL CONTINUE TO MONITOR AND TREAT UNTIL CHANGE OF SHIFT.
[2022-10-06 01:27] LABS: Stool Occult Blood Guaiac 1 Neg (Neg)
--- NOTE | 2022-10-06 01:53 | NUR ---
CARE ASSUMPTION: PATIENT PLEASANT AND COOPERATIVE. MEDICATED PER EMAR - PILLS IN APPLESAUCE. PATIENT HAD 3 INCONTINENT BMS IN CLOSE SUCCESSION. GUAIAC SAMPLE SENT AND RETURNED NEGATIVE RESULTS. BED LOW WITH ALARM SET AND CALL LIGHT IN REACH.
[2022-10-06 05:18] LABS: BASOPHILS ABSOLUTE AUTO 0.04 K/mm3 (0.00-0.23); BASOPHILS PERCENT AUTO 0 % (0-2); EOSINOPHILS ABSOLUTE AUTO 0.25 K/mm3 (0.00-0.68); EOSINOPHILS PERCENT AUTO 2 % (0-6); Hematocrit 23.7 % (37.0-53.0); Hemoglobin 7.7 g/dL (13.5-17.5); IMMATURE GRAN ABSOLUTE AUTO 0.26 K/mm3 (0.00-0.10); IMMATURE GRAN PERCENT AUTO 2 % (0-1); LYMPHOCYTES ABSOLUTE AUTO 0.72 K/mm3 (0.84-5.20); LYMPHOCYTES PERCENT AUTO 6 % (21-46); MONOCYTES ABSOLUTE AUTO 1.12 K/mm3 (0.16-1.47); MONOCYTES PERCENT AUTO 10 % (4-13); Mean Corpuscular HGB 27.4 pg (26.0-34.0); Mean Corpuscular HGB Conc 32.5 g/dL (31.5-36.5); Mean Corpuscular Volume 84 fL (80-100); Mean Platelet Volume 10.3 fL (9.1-12.4); NEUTROPHILS ABSOLUTE AUTO 9.44 K/mm3 (1.96-9.15); NEUTROPHILS PERCENT AUTO 80 % (41-73); NRBC ABSOLUTE 0.02 K/mm3 (0.00-0.02); NRBC Auto 0.2 /100 WBC (0.0-0.2); Platelet Count 376 K/mm3 (150-400); RDW Standard Deviation 61.8 fL (35.1-46.3); Red Blood Cell Count 2.81 M/mm3 (4.30-5.90); White Blood Cell Count 11.83 K/mm3 (4.00-11.30)
--- NOTE | 2022-10-06 05:44 | NUR ---
SHIFT SUMMARY: PATIENT VS WNL, PAINFUL IN LEFT ARM, CONTINENT/INCONTINENT, USES URINAL IN BED WHEN ORIENTED, NO INCONTINENT BMS SINCE PREVIOUS NOTE. DOES NOT USE CALL LIGHT. MEDICATED PER EMAR. PATIENT IS MED TELE STATUS AND REFUSED NEW IV AFTER ACCIDENTALLY PULLING PREVIOUS IV. BED LOW WITH ALARM SET AND CALL LIGHT IN REACH. NO ADVERSE EVENTS THIS SHIFT. WILL CONTINUE TO MONITOR UNTIL REPORT TO DAY RN.
--- NOTE | 2022-10-06 18:10 | NUR ---
SHIFT SUMMARY; ASSUMED CARE AT 0700, A/A/OX3 DURING SHIFT. COOPERATIVE WITH CARE. ALLOWS ASSESMENT TODAY AND ANSWERS QUESTIONS FOR THE DOCTOR, GREATLY IMPROVED FROM YESTERDAY. MOVES SELF ON [facility], ASSISTED WITH URNIAL, CHANGED ATTENDS FOR 1 INCONTINANT STOOL. VSS, NO ACUTE MEDICAL CHANGES, WILL CONTINUE TO MONITOR AND TREAT UNTIL CHANGE OF SHIFT.
[2022-10-07 04:07] LABS: BASOPHILS ABSOLUTE AUTO 0.04 K/mm3 (0.00-0.23); BASOPHILS PERCENT AUTO 0 % (0-2); EOSINOPHILS ABSOLUTE AUTO 0.23 K/mm3 (0.00-0.68); EOSINOPHILS PERCENT AUTO 2 % (0-6); Hematocrit 33.2 % (37.0-53.0); Hemoglobin 10.3 g/dL (13.5-17.5); IMMATURE GRAN ABSOLUTE AUTO 0.26 K/mm3 (0.00-0.10); IMMATURE GRAN PERCENT AUTO 2 % (0-1); LYMPHOCYTES ABSOLUTE AUTO 0.81 K/mm3 (0.84-5.20); LYMPHOCYTES PERCENT AUTO 7 % (21-46); MONOCYTES ABSOLUTE AUTO 0.94 K/mm3 (0.16-1.47); MONOCYTES PERCENT AUTO 8 % (4-13); Mean Corpuscular Volume 87 fL (80-100); Mean Platelet Volume 9.9 fL (9.1-12.4); NEUTROPHILS ABSOLUTE AUTO 9.05 K/mm3 (1.96-9.15); NEUTROPHILS PERCENT AUTO 80 % (41-73); NRBC ABSOLUTE 0.04 K/mm3 (0.00-0.02); NRBC Auto 0.4 /100 WBC (0.0-0.2); Platelet Count 464 K/mm3 (150-400); RDW Coefficient Variation 22.1 % (11.7-14.2); RDW Standard Deviation 66.5 fL (35.1-46.3); Red Blood Cell Count 3.82 M/mm3 (4.30-5.90); White Blood Cell Count 11.33 K/mm3 (4.00-11.30)
--- NOTE | 2022-10-07 04:11 | NUR ---
SHIFT SUMMARY NO ACUTE CHANGES THIS SHIFT. VSS. ALERT TO SUPPOSED BASELINE. PT CONVERSES WITH STAFF BUT STILL MOANS AND SPEAKS INCOHERENTLY TO SELF AT TIMES. PT HAS SET OFF BED ALARM A FEW TIMES HIS SHIFT, BED ALARM REMAINS IN PLACE. PT BEING BE REPOSITIONED BY STAFF BUT PT MOVES SELF AROUND OFTEN. PT HAS BEEN COOPERATIVE AND APPRORPRIATE WITH STAFF THIS SHIFT WITHOUT ANY BEHAVIORAL ISSUES. RESTING OFF AND ON BETWEEN INTERACTIONS WITH STAFF.
[2022-10-07 04:27] LABS: Anion Gap 6 mmol/L (6-16); Blood Urea Nitrogen 108 mg/dL (8-24); Bun/Creatinine Ratio 31.8 (12.0-20.0); CO2, Blood 24 mmol/L (21-32); Calcium, Blood 8.6 mg/dL (8.5-10.1); Chloride, Blood 107 mmol/L (98-108); Glomerular Filtration Rate 19 (60-); Glucose, Blood 147 mg/dL (70-99); Potassium, Blood 4.7 mmol/L (3.5-5.5); Sodium, Blood 137 mmol/L (136-145)
--- NOTE | 2022-10-07 08:25 | NUR ---
TRANSFER NOTE REPPORT GIVEN TO HILARIO HORVATH FROM MEDICAL FLOOR, PT TRANSFERRED TO [place] [id number] AT APPROX. 0815 BY ANJALI HORVATH AND RAYMOND JURADO CNA.
--- NOTE | 2022-10-07 20:01 | NUR ---
SHIFT SUMMARY PT TX'D TO RM 340 AT START OF SHIFT FROM PCU 5. A&O AT THE TIME. NO C/O. SR PER TELE MX. PT ADMITTED FOR ACUTE HEART FAILURE, CHF EXAC, AND FLORINDA. PT WITH HX OF METH AND ETOH ABUSE, HEP C+. NONCOMPLIANT WITH MEDICATIONS PRIOR TO COMING IN. PT WITH SCATTERED SCABS THAT HE PICKS AT CONSTANTLY. PT WAS PLEASANT AND CO-OP EARLIER IN THE DAY. CALLED FOR ASSISTANCE TO BSC FOR BM. THIS AFTERNOON/EVENING PT BECAME AGITATED AND AGRESSIVE. PT PULLED OFF TELE AND ATTEMPTING TO GET OOB W/O ASSIST. PT REFUSING ANY ASSISTANCE AND UNABLE TO STAND ON HIS OWN. PT BECOMING AGGRESSIVE WITH STAFF WHEN TRYING TO ASSIST HIM TO KEEP HIM SAFE. PT EVENTUALLY ASSISTED BACK INTO BED AND TELE MX REPLACED. BED ALARM ON FOR SAFETY. REPORT GIVEN TO ONCOMING RN.
--- NOTE | 2022-10-08 02:36 | NUR ---
Notified Hospitalist - AFIB Telemetry called and said pt is in afib 120-150. [address] Dr[address] Fregoso who ordered 5 mg metoprolol IV PRN q6 for sustained HR above 140.
[2022-10-08 05:48] LABS: BASOPHILS ABSOLUTE AUTO 0.02 K/mm3 (0.00-0.23); BASOPHILS PERCENT AUTO 0 % (0-2); EOSINOPHILS ABSOLUTE AUTO 0.08 K/mm3 (0.00-0.68); EOSINOPHILS PERCENT AUTO 1 % (0-6); Hematocrit 29.3 % (37.0-53.0); Hemoglobin 9.4 g/dL (13.5-17.5); IMMATURE GRAN ABSOLUTE AUTO 0.17 K/mm3 (0.00-0.10); IMMATURE GRAN PERCENT AUTO 2 % (0-1); LYMPHOCYTES ABSOLUTE AUTO 0.74 K/mm3 (0.84-5.20); LYMPHOCYTES PERCENT AUTO 9 % (21-46); MONOCYTES ABSOLUTE AUTO 0.96 K/mm3 (0.16-1.47); MONOCYTES PERCENT AUTO 11 % (4-13); Mean Corpuscular HGB 27.2 pg (26.0-34.0); Mean Corpuscular HGB Conc 32.1 g/dL (31.5-36.5); Mean Corpuscular Volume 85 fL (80-100); Mean Platelet Volume 9.7 fL (9.1-12.4); NEUTROPHILS ABSOLUTE AUTO 6.52 K/mm3 (1.96-9.15); NEUTROPHILS PERCENT AUTO 77 % (41-73); NRBC ABSOLUTE 0.02 K/mm3 (0.00-0.02); NRBC Auto 0.2 /100 WBC (0.0-0.2); Platelet Count 485 K/mm3 (150-400); RDW Coefficient Variation 22.3 % (11.7-14.2); RDW Standard Deviation 64.8 fL (35.1-46.3); Red Blood Cell Count 3.45 M/mm3 (4.30-5.90); White Blood Cell Count 8.49 K/mm3 (4.00-11.30)
[2022-10-08 06:09] LABS: Albumin, Blood 1.9 g/dL (3.4-5.0); Anion Gap 8 mmol/L (6-16); Blood Urea Nitrogen 110 mg/dL (8-24); Bun/Creatinine Ratio 34.2 (12.0-20.0); CO2, Blood 22 mmol/L (21-32); Calcium, Blood 8.4 mg/dL (8.5-10.1); Chloride, Blood 105 mmol/L (98-108); Creatinine, Blood 3.22 mg/dL (0.60-1.20); Glomerular Filtration Rate 21 (60-); Glucose, Blood 135 mg/dL (70-99); Phosphorus, Blood 4.2 mg/dL (2.5-4.9); Potassium, Blood 4.4 mmol/L (3.5-5.5); Sodium, Blood 135 mmol/L (136-145)
--- NOTE | 2022-10-08 07:40 | NUR ---
Shift Summary Pt calling out t/o the night, c/o of pain 'all over'. Continent/incontinent voids. Pt can be irritable during care, but is generally cooperative if you don't push or pull him. Pt very thirsty, frequently requesting water. On tele, running SR in the 80's and had a 1 hour run of afib from 120-150. Aspiration risk, took meds whole in applesauce.
--- NOTE | 2022-10-08 08:00 | NUR ---
Pt laying in bed yelling out at times, he was cooperative with this nurse, but when came in he became a bit manipulative and wouldn't respond to her, finally did allow her to assess him, a/ox3, complains he wants to go home, lungs are clear t/o on r/a, hrirr, tele in place running afib per monitor, see strip, no edema noted, ppp+2, cap refill <3sec, vs stable, afebrile, iv to rfa site is clear and patent, btx4, abd flat soft nontender, but states he hurts all over, voids without diff, skin c/w/d, maew, declan, call light in reach.
--- NOTE | 2022-10-08 18:20 | NUR ---
heart rate was in the 120's, briefly hit 140, gave an extra dose of lopressor to make 37.5mg, did not change rate, gave 5mg iv lopressor which brought rate down, to low 100's, but b/p went to the 90's, map in the 80's, notified Dr. edmundo brennan, tylenol given for pain, pt continues to yell out. no further changes this shift. call light in reach.
--- NOTE | 2022-10-09 06:24 | NUR ---
SUMMARY PT HAS NO NEW ISSUES. PT REPORTS LEFT SHOULDER DISCOMFORT. PT TX PER EMAR WITH SOME RELIEF. PT HAS BEEN COOPERATIVE AND PLESANT THIS SHIFT. PT HAS BEEN DRINKING PO FLUIDS WELL AND VOIDING. PT SLEPT SOME BUT REPORTED HAVING FREQUENT NIGHTMARES. PT CURRENTLY SLEEPING IN NO DISTRESS. CALL LIGHT IN REACH.
[2022-10-09 06:52] LABS: BASOPHILS ABSOLUTE AUTO 0.03 K/mm3 (0.00-0.23); BASOPHILS PERCENT AUTO 0 % (0-2); EOSINOPHILS ABSOLUTE AUTO 0.15 K/mm3 (0.00-0.68); EOSINOPHILS PERCENT AUTO 2 % (0-6); Hematocrit 28.7 % (37.0-53.0); Hemoglobin 9.1 g/dL (13.5-17.5); IMMATURE GRAN ABSOLUTE AUTO 0.22 K/mm3 (0.00-0.10); IMMATURE GRAN PERCENT AUTO 2 % (0-1); LYMPHOCYTES ABSOLUTE AUTO 0.94 K/mm3 (0.84-5.20); LYMPHOCYTES PERCENT AUTO 10 % (21-46); MONOCYTES ABSOLUTE AUTO 1.08 K/mm3 (0.16-1.47); MONOCYTES PERCENT AUTO 11 % (4-13); Mean Corpuscular HGB 27.1 pg (26.0-34.0); Mean Corpuscular HGB Conc 31.7 g/dL (31.5-36.5); Mean Corpuscular Volume 85 fL (80-100); Mean Platelet Volume 9.5 fL (9.1-12.4); NEUTROPHILS ABSOLUTE AUTO 7.38 K/mm3 (1.96-9.15); NEUTROPHILS PERCENT AUTO 75 % (41-73); NRBC ABSOLUTE 0.02 K/mm3 (0.00-0.02); NRBC Auto 0.2 /100 WBC (0.0-0.2); Platelet Count 492 K/mm3 (150-400); RDW Coefficient Variation 22.5 % (11.7-14.2); RDW Standard Deviation 69.2 fL (35.1-46.3); Red Blood Cell Count 3.36 M/mm3 (4.30-5.90)
[2022-10-09 07:13] LABS: Albumin, Blood 1.9 g/dL (3.4-5.0); Anion Gap 6 mmol/L (6-16); Blood Urea Nitrogen 109 mg/dL (8-24); Bun/Creatinine Ratio 34.9 (12.0-20.0); CO2, Blood 23 mmol/L (21-32); Calcium, Blood 8.7 mg/dL (8.5-10.1); Chloride, Blood 105 mmol/L (98-108); Creatinine, Blood 3.12 mg/dL (0.60-1.20); Glomerular Filtration Rate 21 (60-); Glucose, Blood 131 mg/dL (70-99); Phosphorus, Blood 5.4 mg/dL (2.5-4.9); Potassium, Blood 4.3 mmol/L (3.5-5.5); Sodium, Blood 134 mmol/L (136-145)
--- NOTE | 2022-10-09 08:00 | NUR ---
pt in much better mood this am, more cooperative with care, a/ox3, lungs are clear t/o, resp even and unlabored, on r/a, hrirr, tele in place running afib per monitor, see strip, rate is controlled in the 80's to 90's, no edema noted, ppp+2, cap refill <3sec, vs stable, afebrile, iv to right fa, site is clear and patent, btx4, abd flat soft nontender, voids via urinal clear yellow urine, skin c/w/d, declan [place], call light in reach.
--- NOTE | 2022-10-09 18:14 | NUR ---
pt has had a much better day today than yesterday, had tylenol for pain, no acute changes this shift. call light in reach.
--- NOTE | 2022-10-10 05:04 | NUR ---
SUMMARY: PATIENT DID WELL OVERNIGHT. WENT FOR WALK WITH CARDING DOUBLER BEFORE BED GAIT BELT AND FWW USED. GAVE PRN MELATONIN PER PATIENT REQUEST. PATIENT COMPLIANT WITH ALL CARE AND PLEASANT TO STAFF. VOIDS IN URINAL. NO ACUTE EVENTS.
[2022-10-10 06:22] LABS: Hematocrit 27.3 % (37.0-53.0); Hemoglobin 8.9 g/dL (13.5-17.5); Mean Corpuscular HGB 27.3 pg (26.0-34.0); Mean Corpuscular HGB Conc 32.6 g/dL (31.5-36.5); Mean Corpuscular Volume 84 fL (80-100); Mean Platelet Volume 9.7 fL (9.1-12.4); NRBC ABSOLUTE 0.02 K/mm3 (0.00-0.02); NRBC Auto 0.2 /100 WBC (0.0-0.2); Platelet Count 525 K/mm3 (150-400); RDW Coefficient Variation 22.5 % (11.7-14.2); RDW Standard Deviation 67.8 fL (35.1-46.3); Red Blood Cell Count 3.26 M/mm3 (4.30-5.90); White Blood Cell Count 13.22 K/mm3 (4.00-11.30)
[2022-10-10 06:57] LABS: Albumin, Blood 1.9 g/dL (3.4-5.0); Albumin/Globulin Ratio 0.4 (0.8-1.8); Bilirubin, Total 0.4 mg/dL (0.1-1.0); Bun/Creatinine Ratio 35.9 (12.0-20.0); Calcium, Blood 8.5 mg/dL (8.5-10.1); Creatinine, Blood 3.12 mg/dL (0.60-1.20); Globulin, Blood 5.3 g/dL (2.2-4.0); Total Protein, Blood 7.2 g/dL (6.4-8.2)
[2022-10-10] MEDS ORDERED: FERSU300 PO (11:13)
[2022-10-10] MEDS ORDERED: HYDHCL25 PO (11:15)
[2022-10-10] MEDS ORDERED: XARELTO15 M1 PO (11:16)
--- NOTE | 2022-10-10 15:56 | NUR ---
DISCHARGE TO HOME. LEAVES UNIT VIA WHEEL CHAIR. [facility] TRANSPORT TO TAKE HIM HOME TO [place]. [facility] REQUEST TO HAVE THEM DELIVERED.
== END 2022-10-10 15:39 | disposition home or self-care (01) | DRG 871 ==
LOC: ER 03:41 → MEDS 03:42 → ENPENDDIS 09-27 18:53 → MEDS 09-30 13:32 → PCU 10-04 20:38 → MEDS 10-07 08:19
PROVIDERS: Emergency Medicine; Family Medicine; Internal Medicine; Internal Medicine Nephrology; Nurse Practitioner Acute Care; Student in an Organized Health Care Education/Training Program; ADMIT Hospitalist
DX: A41.01 Sepsis due to Methicillin susceptible Staphylococcus aureus (principal); G92.8 Other toxic encephalopathy; I50.43 Acute on chronic combined systolic (congestive) and diastolic (congestive) heart failure; I13.0 Hypertensive heart and chronic kidney disease with heart failure and stage 1 through stage 4 chronic kidney disease, or unspecified chronic kidney disease; N18.4 Chronic kidney disease, stage 4 (severe); E87.1 Hypo-osmolality and hyponatremia; F15.23 Other stimulant dependence with withdrawal; N39.0 Urinary tract infection, site not specified; Z20.822 Contact with and (suspected) exposure to COVID-19; D63.1 Anemia in chronic kidney disease; F10.20 Alcohol dependence, uncomplicated; F17.290 Nicotine dependence, other tobacco product, uncomplicated; K74.60 Unspecified cirrhosis of liver; B19.20 Unspecified viral hepatitis C without hepatic coma; B95.2 Enterococcus as the cause of diseases classified elsewhere; I48.0 Paroxysmal atrial fibrillation; E86.0 Dehydration; E87.6 Hypokalemia; M25.512 Pain in left shoulder; Z71.41 Alcohol abuse counseling and surveillance of alcoholic; Z71.51 Drug abuse counseling and surveillance of drug abuser; Z91.14 Patient's other noncompliance with medication regimen; Z86.73 Personal history of transient ischemic attack (TIA), and cerebral infarction without residual deficits; Z79.899 Other long term (current) drug therapy
CPT/HCPCS: 0241U; 36415; 36600; 71046; 73030; 76705; 76770; 80048; 80053; 80069; 80202; 81001; 82140; 82270; 82306; 82330; 82550; 82570; 82607; 82728; 82746; 82803; 82947; 83036; 83540; 83550; 83605; 83690; 83735; 83880; 83935; 83970; 84100; 84145; 84156; 84165; 84300; 84443; 84484; 84540; 85025; 85027; 86160; 87040; 87077; 87086; 87147; 87186; 87205; 92526; 92610; 93005; 93010; 93306; 93308; 93321; 94760; 96372; 96374; 96375; 96376; 97110; 97116; 97162; 97166; 97530; 97535; 99285-25; A9270; G0378; J0360; J0610; J0690; J1200; J1630; J1644; J1940; J1956; J2405; J2916; J3010; J3370; J3475; J3480; J7050; J7120; Q5106